=== PATIENT | male | born 1960 | race Caucasian/White ===

== ENCOUNTER 2016-07-05 10:44 | Emergency (ER) | payer OTHER ==
[2016-07-05 10:54] VITALS: BP 172/92; PULSE 95; RESP 20; TEMP 96.9
--- NOTE | 2016-07-05 11:21 | XR ---
EXAMINATION TYPE: XR shoulder complete LT DATE OF EXAM: 07/05/2016 11:16 AM COMPARISON: NONE HISTORY: 55-year-old male pain after fall TECHNIQUE: 3 views FINDINGS: Mild degenerative joint space narrowing at the AC joint. Subacromial space is preserved. No acute fra cture or dislocation seen. Visualized left hemithorax is clear. IMPRESSION: Mild AC joint osteoarthrosis. No acute osseous abnormality seen.
--- NOTE | 2016-07-05 11:28 | ED ---
Upper Extremity HPI - General Chief Complaint: Extremity Injury, Upper Stated Complaint: Fall Time Seen by Provider: 07/05/16 11:00 Source: patient, RN notes reviewed Mode of arrival: ambulatory Limitations: no limitations - History of Present Illness Initial Comments: Patient is a 55-year-old male presents to the emergency room for evaluation of left shoulder pain. Patient states he slipped and fell on ice last night. Patient states he landed on his left shoulder. Patient denies feeling any pops or cracks during the incident. Patient states increased pain when he woke up this morning. Patient states pain is mostly on the anterior portion of the shoulder joint. Patient denies any previous injuries or surgeries to his left shoulder. Patient states it causes him 5/10 pain to move his shoulder. Patient denies head trauma, loss consciousness, neck pain, numbness or tingling in extremities. Patient denies any other injuries during incident. - Related Data Home Medications Medication Instructions Recorded Confirmed Amitriptyline HCl [Elavil] 1 tab PO DAILY 07/05/16 07/05/16 Hydrochlorothiazide [Hydrodiuril] 1 tab PO DAILY 07/05/16 07/05/16 Insulin NPL/Insulin Lispro 0 unit SQ DIRECTED 07/05/16 07/05/16 [humaLOG Mix 75-25 Kwikpen] Venlafaxine HCl [Effexor] 1 tab PO DAILY 07/05/16 07/05/16 metFORMIN HCL [Glucophage] 1 tab PO BID 07/05/16 07/05/16 Allergies Allergy/AdvReac Type Severity Reaction Status Date / Time No Known Allergies Allergy Verified 07/05/16 11:36 Review of Systems ROS Statement: Those systems with pertinent positive or pertinent negative responses have been documented in the HPI. ROS Other: All systems not noted in ROS Statement are negative. Past Medical History Past Medical History: Diabetes Mellitus History of Any Multi-Drug Resistant Organisms: None Reported Past Surgical History: Appendectomy, Cholecystectomy Past Psychological History: Depression Smoking Status: Never smoker Past Alcohol Use History: None Reported Past Drug Use History: None Reported General Exam - General Exam Comments Initial Comments: Sitting in exam room in no acute distress. Limitations: no limitations General appearance: alert, in no apparent distress Head exam: Present: atraumatic, normocephalic, normal inspection Eye exam: Present: normal appearance ENT exam: Present: normal exam Neck exam: Present: normal inspection Respiratory exam: Present: normal lung sounds bilaterally. Absent: respiratory distress Cardiovascular Exam: Present: regular rate, normal rhythm, normal heart sounds Left Shoulder Exam: Present: normal inspection, full ROM (Patient can extend and abduct about 90), tenderness (anterior shoulder joint). Absent: swelling, ecchymosis, deformity, crepitus, tenderness over AC joint Upper Arm exam: Present: normal inspection, full ROM. Absent: tenderness Neuro motor exam: Present: wrist extension intact Vascular: Present: normal capillary refill (Capillary refill less than 2 seconds ), radial pulse (2+), ulnar pulse (2+) Back exam: Present: normal inspection Neurological exam: Present: alert, oriented X3, CN II-XII intact, normal gait Psychiatric exam: Present: normal affect, normal mood Skin exam: Present: warm, dry, intact, normal color. Absent: rash Course Vital Signs 07/05/16 10:51 Temperature 96.9 F L Pulse Rate 95 Respiratory 20 Rate Blood Pressure 172/92 O2 Sat by Pulse 97 Oximetry Medical Decision Making - Medical Decision Making Patient is a 55-year-old male presents to the emergency room for evaluation of fall injury to left shoulder. Left shoulder x-ray shows no acute abnormalities. Advised patient to follow-up with cycle specialist if symptoms are not improving. Patient states he understands everything that was discussed with him. Return parameters discussed. - Radiology Data Radiology results: report reviewed, image reviewed Disposition Clinical Impression: Fall, Shoulder injury Disposition: HOME SELF-CARE Condition: Good Instructions: Shoulder Sprain (ED), Rotator Cuff Injury (ED) Additional Instructions: Ice on and off for 10-15 minutes for the next 24-48 hours. Take Tylenol or Motrin as needed for pain. Please follow-up with cycle specialist if symptoms do not improve in 7-10 days. If new symptoms develop or symptoms worsen , please return to the ER. Referrals: Yomaira Sparks MD [Primary Care Provider] - 1-2 days Anoop Stevens DO [Doctor of Osteopathic Medicine] - 1-2 days Time of Disposition: 11:29
== END 2016-07-05 11:44 | disposition home or self-care (01) ==
LOC: EC 10:44
DX: S49.92XA Unspecified injury of left shoulder and upper arm, initial encounter (principal); W00.0XXA Fall on same level due to ice and snow, initial encounter; E11.9 Type 2 diabetes mellitus without complications; F32.9 Major depressive disorder, single episode, unspecified; Z79.4 Long term (current) use of insulin; Z79.84 Long term (current) use of oral hypoglycemic drugs; Z79.899 Other long term (current) drug therapy
CPT/HCPCS: 99283

== ENCOUNTER 2017-08-26 07:38 | Day surgery (SDC) | payer BC, OTHER ==
[2017-08-24 11:29] VITALS: BMI 36.5
[~2017-08-26 07:38] MED LIST: LACTATED RINGERS 1,000 ML IV SCH; LIDOCAINE 1% 20 ML VIAL (10MG/ML) FOR IV START INTRADERMA PRN
[2017-08-26] MEDS ORDERED: LACTATED RINGERS 1,000 ML IV ONE (07:52)
[2017-08-26 08:07] LABS: Glucose,Whole Blood 120 mg/dL (75-99)
[2017-08-26 08:19] VITALS: TEMP 98
[2017-08-26] MEDS ORDERED: LIDOCAINE 1% 20 ML VIAL (10MG/ML) FOR IV START INTRADERMA ONE (08:20)
[2017-08-26] MEDS ORDERED: PROPOFOL 10 MG/ML 20 ML VIAL IV ONE (08:24)
[2017-08-26] MEDS ORDERED: LIDOCAINE 1% INJ 10MG/ML (20 ML MDV) ONE (08:24)
--- NOTE | 2017-08-26 09:19 | P.PCN ---
Date of Procedure: 08/26/17 Procedure(s) Performed: Procedure: Total colonoscopy. Preoperative diagnosis: Screening for neoplasia. Postoperative diagnosis: Exam within normal limits. Preparation: HalfLytely prep. Sedation: Was provided by anesthesia. Brief clinical history: The patient is a 56-year-old male who is scheduled for this evaluation for screening for neoplasia. He had a prior exam around 10 years ago. No history of polyps or family history of colon cancer he is aware of. At this time, he has no abdominal complaints, bleeding or anemia. Procedure: With the patient on his left lateral decubitus position and after informed consent and adequate sedation, the perianal area was inspected and it did not show any fissures or fistulas. There were no masses felt on digital rectal examination. The Olympus CFQ 160L video colonoscope was then inserted in the rectum in the usual fashion and advanced to the cecum. The mucosa appeared healthy. No polyps or tumors were seen or any obvious diverticular disease or other pathology. The patient tolerated the procedure well. Plan: The patient was reassured. He will follow up with you as planned and I recommended repeat exam in 10 years.
[2017-08-26 09:29] LABS: Glucose,Whole Blood 115 mg/dL (75-99)
[2017-08-26 09:56] VITALS: BP 157/94; PULSE 68; RESP 18
== END 2017-08-26 10:08 | disposition home or self-care (01) ==
LOC: ORWHC2ENDO 07:38
DX: Z12.11 Encounter for screening for malignant neoplasm of colon (principal); E11.9 Type 2 diabetes mellitus without complications; K21.9 Gastro-esophageal reflux disease without esophagitis; E78.5 Hyperlipidemia, unspecified; I10 Essential (primary) hypertension; G47.33 Obstructive sleep apnea (adult) (pediatric); Z79.82 Long term (current) use of aspirin; Z79.4 Long term (current) use of insulin; Z86.14 Personal history of Methicillin resistant Staphylococcus aureus infection; Z79.899 Other long term (current) drug therapy; Z90.49 Acquired absence of other specified parts of digestive tract
CPT/HCPCS: 45378; J2001; J2704

== ENCOUNTER 2019-11-24 08:46 | Observation (INO) | payer OTHER ==
[2019-11-24] MEDS ORDERED: ONDANSETRON 4 MG/2 ML VIAL IVP STA (09:18)
[2019-11-24] MEDS ORDERED: SODIUM CHLORIDE 0.9% 1,000 ML IV STA (09:18)
[2019-11-24] MEDS ORDERED: HYDROmorphone 0.5 MG/0.5 ML SYRINGE IVP STA ×2 (09:18→11:21)
--- NOTE | 2019-11-24 09:22 | ED ---
General Adult HPI - General Chief complaint: Abdominal Pain Stated complaint: abd Pain Time Seen by Provider: 11/24/19 08:57 Source: patient, RN notes reviewed Mode of arrival: ambulatory Limitations: no limitations - History of Present Illness Initial comments: 59-year-old male with a past medical history of diabetes mellitus, hyperlipidemia, hypertension, GERD, presents to the emergency determine for a chief complaint of abdominal pain. Patient states that he was at work today about an hour ago when he started feeling pain in the right side of his abdomen. States the pain is severe. States is making him nauseous. Denies any radiating pain. Patient is concerned this could be from a hernia that he was told he had several years ago. Patient states bowel movements have been normal.Patient has no other complaints at this time including shortness of breath, chest pain, nausea or vomiting, headache, or visual changes. - Related Data Home Medications Medication Instructions Recorded Confirmed Amitriptyline HCl [Elavil] 25 mg PO HS 07/05/16 08/26/17 Hydrochlorothiazide [Hydrodiuril] 25 mg PO DAILY 07/05/16 08/26/17 Venlafaxine HCl [Effexor] 75 tab PO BID 07/05/16 08/26/17 metFORMIN HCL [Glucophage] 1,000 mg PO BID 07/05/16 08/26/17 Insulin NPH Hum/Reg Insulin Hm 35 unit SQ AC-SUPPER 09/18/16 08/26/17 [Novolin 70-30 100 Unit/ml Vial] Insulin NPH Hum/Reg Insulin Hm 43 unit SQ AC-BRKFST 09/18/16 08/24/17 [Novolin 70-30 100 Unit/ml Vial] Lisinopril-Hctz 10-12.5 mg 1 tab PO QAM 09/18/16 08/26/17 [Zestoretic 10-12.5] Omeprazole [PriLOSEC] 20 mg PO QAM 09/18/16 08/26/17 Pravastatin Sodium [Pravachol] 10 mg PO HS 09/18/16 08/26/17 Alpha Lipoic Acid 100 mg PO BID 08/24/17 08/26/17 Aspirin [Adult Low Dose Aspirin EC] 81 mg PO DAILY 08/24/17 08/26/17 Atenolol 50 mg PO DAILY 08/24/17 08/26/17 Allergies Allergy/AdvReac Type Severity Reaction Status Date / Time No Known Allergies Allergy Verified 11/24/19 08:54 Review of Systems ROS Statement: Those systems with pertinent positive or pertinent negative responses have been documented in the HPI. ROS Other: All systems not noted in ROS Statement are negative. Past Medical History Past Medical History: Diabetes Mellitus, GERD/Reflux, Hyperlipidemia, Hypertension, Pneumonia, Sleep Apnea/CPAP/BIPAP Additional Past Medical History / Comment(s): recent bronchitis,uses cpap History of Any Multi-Drug Resistant Organisms: None Reported Past Surgical History: Appendectomy, Cholecystectomy, Hernia Repair, Orthopedic Surgery Additional Past Surgical History / Comment(s): surgery rt elbow, Past Anesthesia/Blood Transfusion Reactions: No Reported Reaction Additional Past Anesthesia/Blood Transfusion Reaction / Comment(s): . Past Psychological History: Anxiety, Depression Smoking Status: Never smoker - Past Family History Mother Family Medical History: No Reported History Father Family Medical History: CVA/TIA General Exam Limitations: no limitations General appearance: alert, in no apparent distress Head exam: Present: atraumatic, normocephalic, normal inspection Eye exam: Present: normal appearance, PERRL, EOMI. Absent: scleral icterus, conjunctival injection, periorbital swelling ENT exam: Present: normal exam, mucous membranes moist Neck exam: Present: normal inspection, full ROM. Absent: tenderness, m eningismus, lymphadenopathy Respiratory exam: Present: normal lung sounds bilaterally. Absent: respiratory distress, wheezes, rales, rhonchi, stridor Cardiovascular Exam: Present: regular rate, normal rhythm, normal heart sounds. Absent: systolic murmur, diastolic murmur, rubs, gallop, clicks GI/Abdominal exam: Present: soft, tenderness (Mild tenderness noted in the right lower quadrant.), normal bowel sounds. Absent: distended, guarding, rebound, rigid, hernia (I do not see evidence of incarcerated hernia) Back exam: Absent: CVA tenderness (R), CVA tenderness (L) Neurological exam: Present: alert Course Vital Signs 11/24/19 11/24/19 08:52 12:20 Temperature 98.7 F 97.7 F Pulse Rate 89 78 Respiratory 18 18 Rate Blood Pressure 151/89 113/70 O2 Sat by Pulse 98 98 Oximetry Medical Decision Making - Medical Decision Making She presents with abdominal pain. Patient states pain is mostly in the right lower quadrant. Patient is concerned it may be related to history of a hernia. He has had for several years. He was told it was not operable at that time and would not cause problems. Is ago exam does reveal bulge over the umbilicus the patient states that is always there. CBC unremarkable. CMP does show evidence of hyponatremia. Patient has a history of this. Patient was told to take salt tablets by 1 doctor however his next doctor told him not to severe has not been doing so. He was already given a liter of normal saline on presentation. He will be gently rehydrated from now on. CT abdomen and pelvis with contrast shows a supra periumbilical hernia containing a loop of small bowel that appears entrapped with dilated bowel proximal to this and decompressed distally in bowel wall thickening of the entrapped bowel. Early forming bowel instruction secondary to this entrapped loop of bowel. I did give patient additional pain medication and was able to reduce this hernia. However patient continues to have significant abdominal pain. Patient and his are requesting to see Dr. Laurent as his surgeon. - Lab Data Result diagrams: 11/24/19 09:18 11/24/19 09:18 Lab Results 11/24/19 11/24/19 11/24/19 Range/Units 09:18 09:18 10:46 WBC 4.7 (3.8-10.6) k/uL RBC 5.20 (4.30-5.90) m/uL Hgb 14.7 (13.0-17.5) gm/dL Hct 45.1 (39.0-53.0) % MCV 86.6 (80.0-100.0) fL MCH 28.2 (25.0-35.0) pg MCHC 32.6 (31.0-37.0) g/dL RDW 14.6 (11.5-15.5) % Plt Count 209 (150-450) k/uL Neutrophils % 66 % Lymphocytes % 15 % Monocytes % 10 % Eosinophils % 5 % Basophils % 1 % Neutrophils # 3.1 (1.3-7.7) k/uL Lymphocytes # 0.7 L (1.0-4.8) k/uL Monocytes # 0.5 (0-1.0) k/uL Eosinophils # 0.2 (0-0.7) k/uL Basophils # 0.0 (0-0.2) k/uL Sodium 126 L (137-145) mmol/L Potassium 4.1 (3.5-5.1) mmol/L Chloride 95 L (98-107) mmol/L Carbon Dioxide 21 L (22-30) mmol/L Anion Gap 10 mmol/L BUN 10 (9-20) mg/dL Creatinine 0.52 L (0.66-1.25) mg/dL Est GFR (CKD-EPI)AfAm >90 (>60 ml/min/1.73 sqM) Est GFR (CKD-EPI)NonAf >90 (>60 ml/min/1.73 sqM) Glucose 165 H (74-99) mg/dL Calcium 9.1 (8.4-10.2) mg/dL Total Bilirubin 0.8 (0.2-1.3) mg/dL AST 35 (17-59) U/L ALT 19 (4-49) U/L Alkaline Phosphatase 77 (38-126) U/L Total Protein 6.9 (6.3-8.2) g/dL Albumin 4.2 (3.5-5.0) g/dL Amylase 42 (30-110) U/L Lipase 99 (23-300) U/L Urine Color Light Yellow Urine Appearance Clear (Clear) Urine pH 6.5 (5.0-8.0) Ur Specific [place]iba 1.022 (1.001-1.035) Urine Protein Negative (Negative) Urine Glucose (UA) Negative (Negative) Urine Ketones Negative (Negative) Urine Blood Negative (Negative) Urine Nitrite Negative (Negative) Urine Bilirubin Negative (Negative) Urine Urobilinogen <2.0 (<2.0) mg/dL Ur Leukocyte Esterase Negative (Negative) Disposition Clinical Impression: Supraumbilical hernia, Intractable abdominal pain, Hyponatremia Disposition: ADMITTED IP TO THIS HOSP Condition: Good Is patient prescribed a controlled substance at d/c from ED?: No Referrals: Yomaira Sparks MD [Primary Care Provider] - 1-2 days Time of Disposition: 12:36
[2019-11-24 09:43] LABS: Basophils % (A) 1 %; Eosinophils # (A) 0.2 k/uL (0-0.7); Eosinophils % (A) 5 %; HCT 45.1 % (39.0-53.0); HGB 14.7 gm/dL (13.0-17.5); Lymphocytes # (A) 0.7 k/uL (1.0-4.8); Lymphocytes % (A) 15 %; MCH 28.2 pg (25.0-35.0); MCHC 32.6 g/dL (31.0-37.0); MCV 86.6 fL (80.0-100.0); Mean Platelet Volume 7.1; Monocytes # (A) 0.5 k/uL (0-1.0); Monocytes % (A) 10 %; Neutrophils # (A) 3.1 k/uL (1.3-7.7); Neutrophils % (A) 66 %; Platelet Count 209 k/uL (150-450); RDW 14.6 % (11.5-15.5); WBC 4.7 k/uL (3.8-10.6)
[2019-11-24 09:57] LABS: ALT 19 U/L (4-49); AST 35 U/L (17-59); African American GFR (CKD) >90 (>60 ml/min/1.73 sqM); Albumin 4.2 g/dL (3.5-5.0); Alkaline Phosphatase 77 U/L (38-126); Amylase 42 U/L (30-110); Anion Gap 10 mmol/L; Blood Urea Nitrogen 10 mg/dL (9-20); Calcium 9.1 mg/dL (8.4-10.2); Carbon Dioxide 21 mmol/L (22-30); Chloride 95 mmol/L (98-107); Glucose 165 mg/dL (74-99); Non-African American GFR(CKD) >90 (>60 ml/min/1.73 sqM); Potassium 4.1 mmol/L (3.5-5.1); Sodium 126 mmol/L (137-145); Total Bilirubin 0.8 mg/dL (0.2-1.3); Total Protein 6.9 g/dL (6.3-8.2)
--- NOTE | 2019-11-24 11:02 | CT ---
EXAMINATION TYPE: CT abdomen pelvis w con DATE OF EXAM: 11/24/2019 COMPARISON: None HISTORY: RLQ pain CT DLP: 1582.7 mGycm Automated exposure control for dose reduction was used. TECHNIQUE: Helical acquisition of images was performed from the lung bases through the pelvis. CONTRAST: Performed without Oral Contrast and with IV Contrast, patient injected with 100 mL of Isovue 300. FINDINGS: LUNG BASES: Bibasilar subsegmental dependent atelectasis. 4 mm right lower lobe pulmonary nodule and calcified left basilar granuloma. LIVER/GB: Unremarkable morphology of liver. Gallbladder surgically absent. PANCREAS: No significant abnormality is seen. SPLEEN: No significant abnormality is seen. ADRENALS: No significant abnormality is seen. KIDNEYS: 1.9 cm left renal cyst is noted. Kidneys enhance and excrete symmetrically otherwise without hydronephrosis. Bilateral extrarenal pelvises. FREE AIR: No free air is visualized. ADENOPATHY: No greater than 1 cm short axis lymph node in the abdomen or pelvis. REPRODUCTIVE ORGANS: Prostate gland is enlarged and with numerous areas of hyperattenuation. Prostate gland measures 6.4 cm. OSSEOUS STRUCTURES: Moderate degenerative change of the spine. BOWEL: Solitary surgical clip seen at the gastroesophageal junction. There are scattered colonic div erticula without pericolonic fat stranding. OTHER: Supra umbilical hernia contains a loop of small bowel demonstrating thickened bowel hope. The re is dilatation proximal to this the bowel is fluid-filled measuring 3.6 cm and decompression distal to this of the small bowel. Other prominent fluid-filled loops of small bowel are seen proximally wi th decompressed distal bowel loops. Inguinal rings are patulous bilaterally and fat filled. IMPRESSION: 1. Supraumbilical hernia containing a loop of small bowel that appears entrapped with bowel dilated p roximal to this and decompressed distally and bowel wall thickening of the entrapped bowel loop. Tawanda y forming bowel obstruction secondary to this entrapped loop of bowel. Correlate for reducibility cli nically. 2. Noncalcified 4 mm right lower lobe pulmonary nodule. Nonemergent follow up CT chest is recommended for full evaluation of the chest. 3. Heterogenous enlarged prostate gland contains numerous areas of hyperattenuation. Correlate with P SA.
[2019-11-24 11:28] LABS: Appearance,Urine Clear (Clear); Bilirubin,Urine Negative (Negative); Blood,Urine Negative (Negative); Color,Urine Light Yellow; Glucose,Urine (UA) Negative (Negative); Ketones,Urine Negative (Negative); Leukocyte Esterase,Urine Negative (Negative); Nitrite,Urine Negative (Negative); PH, Urine 6.5 (5.0-8.0); Protein,Urine Negative (Negative); Specific Gravity,Urine 1.022 (1.001-1.035); Urobilinogen,Urine <2.0 mg/dL (<2.0)
[2019-11-24] MEDS ORDERED: NALOXONE 0.4 MG/ML 1 ML VIAL IV PRN (12:27)
[2019-11-24] MEDS ORDERED: HYDROmorphone 0.5 MG/0.5 ML SYRINGE IVP PRN (12:27)
[2019-11-24] MEDS ORDERED: ONDANSETRON 4 MG/2 ML VIAL IVP PRN (12:27)
[2019-11-24] MEDS ORDERED: ACETAMINOPHEN TAB 325 MG TAB PO PRN (12:27)
[2019-11-24] MEDS: SODIUM CHLORIDE 0.9% 1,000 ML IV SCH ×2 (13:22→23:40)
[2019-11-24 16:35] LABS: Glucose,Whole Blood 68 mg/dL (75-99)
[2019-11-24] MEDS ORDERED: DEXTROSE 50% SYRINGE 50 ML IVP ONE (16:38)
[2019-11-24 16:53] LABS: Glucose,Whole Blood 88 mg/dL (75-99)
[2019-11-24] MEDS: INSULIN ASPART (NovoLOG) 100 UNIT/ML VIAL SQ SCH ×2 (17:51→21:25)
[2019-11-24 17:53] LABS: Glucose,Whole Blood 88 mg/dL (75-99)
--- NOTE | 2019-11-24 18:10 | P.GSHP ---
History of Present Illness H&P Date: 11/24/19 Chief Complaint: Incarcerated umbilical hernia 59-year-old male with history of umbilical hernia. This afternoon the patient developed sudden pain at the hernia site. Says it was quite hard. Pain radiated to the right side of his abdomen. He was nauseated. No vomiting. CAT scan was obtained after arrival showing an incarcerated hernia containing bowel loops. Subsequent obstruction from that was noted. Patient's hernia was able to be reduced by the ER staff. He is now pain free. Patient is diabetic. History of previous cholecystectomy and appendectomy. - Review of Systems Comment: The patient denies any acute changes in vision or hearing, no dysphagia or odynophagia, no chest pain or shortness of breath, no dysuria or hematuria, no headache, no runny nose, no rectal bleeding or melena, no unexplained weight loss Past Medical History Past Medical History: Diabetes Mellitus, GERD/Reflux, Hyperlipidemia, Hypertension, Pneumonia, Sleep Apnea/CPAP/BIPAP Additional Past Medical History / Comment(s): recent bronchitis,uses cpap History of Any Multi-Drug Resistant Organisms: None Reported Past Surgical History: Appendectomy, Cholecystectomy, Hernia Repair, Orthopedic Surgery Additional Past Surgical History / Comment(s): surgery rt elbow, Past Anesthesia/Blood Transfusion Reactions: No Reported Reaction Additional Past Anesthesia/Blood Transfusion Reaction / Comment(s): . Past Psychological History: Anxiety, Depression Smoking Status: Never smoker Past Alcohol Use History: None Reported Past Drug Use History: None Reported - Past Family History Mother Family Medical History: Dementia Father Family Medical History: CVA/TIA Additional Family Medical History / Comment(s): Medications and Allergies Home Medications Medication Instructions Recorded Confirmed Type Amitriptyline HCl [Elavil] 25 mg PO HS 07/05/16 11/24/19 History Venlafaxine HCl [Effexor] 75 tab PO BID 07/05/16 11/24/19 History metFORMIN HCL [Glucophage] 1,000 mg PO BID 07/05/16 11/24/19 History Insulin NPH Hum/Reg Insulin Hm 10 unit SQ AC-SUPPER 09/18/16 11/24/19 History [Novolin 70-30 100 Unit/ml Vial] Insulin NPH Hum/Reg Insulin Hm 20 unit SQ AC-BRKFST 09/18/16 11/24/19 History [Novolin 70-30 100 Unit/ml Vial] Aspirin [Adult Low Dose Aspirin EC] 81 mg PO DAILY 08/24/17 11/24/19 History Atenolol 50 mg PO DAILY 08/24/17 11/24/19 History Dulaglutide [Trulicity] 1.5 mg SQ TH 11/24/19 11/24/19 History Lisinopril [Zestril] 5 mg PO DAILY 11/24/19 11/24/19 History Pioglitazone [Actos] 15 mg PO DAILY 11/24/19 11/24/19 History Pravastatin Sodium [Pravachol] 40 mg PO HS 11/24/19 11/24/19 History Allergies Allergy/AdvReac Type Severity Reaction Status Date / Time No Known Allergies Allergy Verified 11/24/19 13:12 Surgical - Exam Vital Signs Temp Pulse Resp BP Pulse Ox 98.7 F 89 18 151/89 98 11/24/19 08:52 11/24/19 08:52 11/24/19 08:52 11/24/19 08:52 11/24/19 08:52 Physical exam: General: Well-developed, well-nourished HEENT: Normocephalic, sclerae nonicteric Abdomen: Nontender, nondistended, reducible umbilical hernia Extremities: No edema Neuro: Alert and oriented Results - Labs 11/24/19 09:18 11/24/19 09:18 Abnormal Lab Results - Last 24 Hours (Table) 11/24/19 11/24/19 11/24/19 Range/Units 09:18 09:18 16:33 Lymphocytes # 0.7 L (1.0-4.8) k/uL Sodium 126 L (137-145) mmol/L Chloride 95 L (98-107) mmol/L Carbon Dioxide 21 L (22-30) mmol/L Creatinine 0.52 L (0.66-1.25) mg/dL Glucose 165 H (74-99) mg/dL POC Glucose (mg/dL) 68 L (75-99) mg/dL Diabetes panel 11/24/19 Range/Units 09:18 Sodium 126 L (137-145) mmol/L Potassium 4.1 (3.5-5.1) mmol/L Chloride 95 L (98-107) mmol/L Carbon Dioxide 21 L (22-30) mmol/L BUN 10 (9-20) mg/dL Creatinine 0.52 L (0.66-1.25) mg/dL Glucose 165 H (74-99) mg/dL Calcium 9.1 (8.4-10.2) mg/dL AST 35 (17-59) U/L ALT 19 (4-49) U/L Alkaline Phosphatase 77 (38-126) U/L Total Protein 6.9 (6.3-8.2) g/dL Albumin 4.2 (3.5-5.0) g/dL Calcium panel 11/24/19 Range/Units 09:18 Calcium 9.1 (8.4-10.2) mg/dL Albumin 4.2 (3.5-5.0) g/dL Pituitary panel 11/24/19 Range/Units 09:18 Sodium 126 L (137-145) mmol/L Potassium 4.1 (3.5-5.1) mmol/L Chloride 95 L (98-107) mmol/L Carbon Dioxide 21 L (22-30) mmol/L BUN 10 (9-20) mg/dL Creatinine 0.52 L (0.66-1.25) mg/dL Glucose 165 H (74-99) mg/dL Calcium 9.1 (8.4-10.2) mg/dL Adrenal panel 11/24/19 Range/Units 09:18 Sodium 126 L (137-145) mmol/L Potassium 4.1 (3.5-5.1) mmol/L Chloride 95 L (98-107) mmol/L Carbon Dioxide 21 L (22-30) mmol/L BUN 10 (9-20) mg/dL Creatinine 0.52 L (0.66-1.25) mg/dL Glucose 165 H (74-99) mg/dL Calcium 9.1 (8.4-10.2) mg/dL Total Bilirubin 0.8 (0.2-1.3) mg/dL AST 35 (17-59) U/L ALT 19 (4-49) U/L Alkaline Phosphatase 77 (38-126) U/L Total Protein 6.9 (6.3-8.2) g/dL Albumin 4.2 (3.5-5.0) g/dL Assessment and Plan (1) Incarcerated umbilical hernia Narrative/Plan: 59-year-old male with incarcerated umbilical hernia. Hernia has been reduced by the ER staff. Doing well at this time. Will resume diet. Possible discharge later today or tomorrow morning. Elective outpatient repair will be arranged. Current Visit: Yes Status: Acute Code(s): K42.0 - UMBILICAL HERNIA WITH OBSTRUCTION, WITHOUT GANGRENE SNOMED Code(s): 479845495
[2019-11-24] MEDS ORDERED: PRAVASTATIN SODIUM 40 MG TAB PO SCH (21:00)
[2019-11-24 21:24] LABS: Glucose,Whole Blood 122 mg/dL (75-99)
[2019-11-25 06:11] LABS: Glucose,Whole Blood 94 mg/dL (75-99)
[2019-11-25] MEDS: INSULIN ASPART (NovoLOG) 100 UNIT/ML VIAL SQ SCH (07:21)
[2019-11-25 07:52] LABS: ALT 20 U/L (4-49); AST 65 U/L (17-59); African American GFR (CKD) >90 (>60 ml/min/1.73 sqM); Alkaline Phosphatase 74 U/L (38-126); Anion Gap 7 mmol/L; Blood Urea Nitrogen 7 mg/dL (9-20); Calcium 8.5 mg/dL (8.4-10.2); Carbon Dioxide 21 mmol/L (22-30); Chloride 99 mmol/L (98-107); Glucose 98 mg/dL (74-99); Non-African American GFR(CKD) >90 (>60 ml/min/1.73 sqM); Potassium 5.3 mmol/L (3.5-5.1); Sodium 127 mmol/L (137-145); Total Bilirubin 1.6 mg/dL (0.2-1.3)
[2019-11-25 08:00] LABS: Basophils % (A) 1 %; Eosinophils # (A) 0.3 k/uL (0-0.7); Eosinophils % (A) 6 %; HCT 46.2 % (39.0-53.0); HGB 15.4 gm/dL (13.0-17.5); Lymphocytes # (A) 0.8 k/uL (1.0-4.8); Lymphocytes % (A) 14 %; MCH 29.7 pg (25.0-35.0); MCHC 33.3 g/dL (31.0-37.0); MCV 89.1 fL (80.0-100.0); Mean Platelet Volume 7.4; Monocytes # (A) 0.4 k/uL (0-1.0); Monocytes % (A) 8 %; Neutrophils # (A) 3.7 k/uL (1.3-7.7); Neutrophils % (A) 69 %; Platelet Count 184 k/uL (150-450); RBC 5.18 m/uL (4.30-5.90); RDW 15.1 % (11.5-15.5); WBC 5.3 k/uL (3.8-10.6)
[2019-11-25] MEDS ORDERED: LISINOPRIL 5 MG TAB PO SCH (09:00)
[2019-11-25] MEDS ORDERED: PIOGLITAZONE 15 MG TAB PO SCH (09:00)
[2019-11-25] MEDS ORDERED: ATENOLOL 50 MG TAB PO SCH (09:00)
[2019-11-25 09:08] VITALS: BP 133/90; PULSE 85; RESP 16; TEMP 98.3
[2019-11-25] MEDS: SODIUM CHLORIDE 0.9% 1,000 ML IV SCH (09:23)
[2019-11-25 11:34] LABS: Glucose,Whole Blood 165 mg/dL (75-99)
--- NOTE | 2019-11-25 12:58 | P.DS ---
Providers Date of admission: 11/24/19 12:27 Attending physician: Bryant Joseph Primary care physician: Yomaira Sparks - Discharge Diagnosis(es) (1) Incarcerated umbilical hernia Patient minute yesterday for an incarcerated umbilical hernia. This was reduced in the ER. He was observed overnight. He is pain-free today. He would like to go home. Plan is for discharge at this time. Outpatient repair will be scheduled. Status: Acute Patient Condition at Discharge: Good Plan - Discharge Summary Discharge Rx Participant: No New Discharge Prescriptions: No Action metFORMIN HCL [Glucophage] 1,000 mg PO BID Venlafaxine HCl [Effexor] 75 tab PO BID Amitriptyline HCl [Elavil] 25 mg PO HS Insulin NPH Hum/Reg Insulin Hm [Novolin 70-30 100 Unit/ml Vial] 20 unit SQ AC-BRKFST Insulin NPH Hum/Reg Insulin Hm [Novolin 70-30 100 Unit/ml Vial] 10 unit SQ AC-SUPPER Atenolol 50 mg PO DAILY Aspirin [Adult Low Dose Aspirin EC] 81 mg PO DAILY Dulaglutide [Trulicity] 1.5 mg SQ TH Pravastatin Sodium [Pravachol] 40 mg PO HS Pioglitazone [Actos] 15 mg PO DAILY Lisinopril [Zestril] 5 mg PO DAILY Discharge Medication List Amitriptyline HCl [Elavil] 25 mg PO HS 07/05/16 [History] Venlafaxine HCl [Effexor] 75 tab PO BID 07/05/16 [History] metFORMIN HCL [Glucophage] 1,000 mg PO BID 07/05/16 [History] Insulin NPH Hum/Reg Insulin Hm [Novolin 70-30 100 Unit/ml Vial] 10 unit SQ AC- SUPPER 09/18/16 [History] Insulin NPH Hum/Reg Insulin Hm [Novolin 70-30 100 Unit/ml Vial] 20 unit SQ AC- BRKFST 09/18/16 [History] Aspirin [Adult Low Dose Aspirin EC] 81 mg PO DAILY 08/24/17 [History] Atenolol 50 mg PO DAILY 08/24/17 [History] Dulaglutide [Trulicity] 1.5 mg SQ TH 11/24/19 [History] Lisinopril [Zestril] 5 mg PO DAILY 11/24/19 [History] Pioglitazone [Actos] 15 mg PO DAILY 11/24/19 [History] Pravastatin Sodium [Pravachol] 40 mg PO HS 11/24/19 [History] Follow up Appointment(s)/Referral(s): Bryant Joseph MD [Medical Doctor] - 2 Weeks (patient is to call Dr. Joseph's office during office hours to schedule appointment in the next 1-2 weeks for follow up post hospitalization.) Yomaira Sparks MD [Primary Care Provider] - 1-2 days Patient Instructions/Handouts: Umbilical Hernia (DC) Activity/Diet/Wound Care/Special Instructions: NO HEAVY LIFTING. call Dr. Joseph's office during office hours to schedule follow up appointment. Discharge Disposition: HOME SELF-CARE
== END 2019-11-25 12:43 | disposition home or self-care (01) ==
LOC: EC 08:46 → 1SOBS 12:27
PROVIDERS: ADMIT Surgery; ATTEND Surgery
DX: K43.9 Ventral hernia without obstruction or gangrene (principal); E87.1 Hypo-osmolality and hyponatremia; E11.9 Type 2 diabetes mellitus without complications; E78.5 Hyperlipidemia, unspecified; I10 Essential (primary) hypertension; K21.9 Gastro-esophageal reflux disease without esophagitis; G47.30 Sleep apnea, unspecified; F41.9 Anxiety disorder, unspecified; F32.9 Major depressive disorder, single episode, unspecified; Z03.818 Encounter for observation for suspected exposure to other biological agents ruled out; Z79.899 Other long term (current) drug therapy; Z79.4 Long term (current) use of insulin; Z79.82 Long term (current) use of aspirin; Z87.01 Personal history of pneumonia (recurrent); Z99.89 Dependence on other enabling machines and devices; Z87.09 Personal history of other diseases of the respiratory system; Z90.49 Acquired absence of other specified parts of digestive tract; Z98.890 Other specified postprocedural states; Z82.3 Family history of stroke; Z81.8 Family history of other mental and behavioral disorders
CPT/HCPCS: 96376; 96361; 96374; 96375; 99285; 36415; 80053 ×2; 82150; 83605; 83690; 85025 ×2; 81003; 74177; G0378 ×2; U0003; J2405; J1170; Q9967

== ENCOUNTER → 2021-04-16 | Outpatient (CLI) | payer OTHER | END | disposition home or self-care (01) | LOC: LABPAT 15:09 | PROVIDERS: ATTEND Urology | DX: Z01.812 Encounter for preprocedural laboratory examination (principal); E11.9 Type 2 diabetes mellitus without complications; N40.1 Benign prostatic hyperplasia with lower urinary tract symptoms; R35.0 Frequency of micturition | CPT/HCPCS: 80048; 81001; 85025; 86850; 86900; 86901; 87086 ==

== ENCOUNTER 2021-04-24 09:35 | Day surgery (SDC) | payer OTHER ==
[2021-04-16 16:46] LABS: African American GFR (CKD) >90 (>60 ml/min/1.73 sqM); Anion Gap 9 mmol/L; Blood Urea Nitrogen 15 mg/dL (9-20); Carbon Dioxide 29 mmol/L (22-30); Chloride 90 mmol/L (98-107); Glucose 119 mg/dL (74-99); Non-African American GFR(CKD) >90 (>60 ml/min/1.73 sqM); Potassium 4.3 mmol/L (3.5-5.1); Sodium 128 mmol/L (137-145)
[2021-04-16 17:13] LABS: Basophils % (A) 0 %; Eosinophils # (A) 0.1 k/uL (0-0.7); Eosinophils % (A) 2 %; HCT 46.7 % (39.0-53.0); HGB 16.1 gm/dL (13.0-17.5); Lymphocytes # (A) 1.4 k/uL (1.0-4.8); Lymphocytes % (A) 18 %; MCH 30.8 pg (25.0-35.0); MCHC 34.6 g/dL (31.0-37.0); MCV 89.1 fL (80.0-100.0); Mean Platelet Volume 7.8; Monocytes # (A) 0.5 k/uL (0-1.0); Monocytes % (A) 7 %; Neutrophils # (A) 5.4 k/uL (1.3-7.7); Neutrophils % (A) 72 %; Platelet Count 223 k/uL (150-450); RBC 5.24 m/uL (4.30-5.90); RDW 13.8 % (11.5-15.5); WBC 7.5 k/uL (3.8-10.6)
[2021-04-16 18:14] LABS: Appearance,Urine Cloudy (Clear); Bacteria,Urine Rare /hpf; Bilirubin,Urine Negative (Negative); Blood,Urine Trace (Negative); Color,Urine Yellow; Glucose,Urine (UA) Negative (Negative); Ketones,Urine Negative (Negative); Leukocyte Esterase,Urine Large (Negative); Nitrite,Urine Negative (Negative); Protein,Urine Negative (Negative); RBC,Urine 19 /hpf (0-5); Specific Gravity,Urine 1.013 (1.001-1.035); Urobilinogen,Urine <2.0 mg/dL (<2.0); WBC,Urine >182 /hpf (0-5)
--- NOTE | 2021-04-17 13:22 | P.HPIHPCON ---
History of Present Illness H&P Date: 04/17/21 Chief Complaint: BPH This is a 60-year-old male with history of an 89 g prostate. He is symptomatic despite medical therapy. Discussed with him given his size of his prostate, the option of staged TURP, robotic simple, HoLEP. Discussed risk and benefit of each approach. He agreed to proceed with robotic simple prostatectomy. Discussed the risk which includes but not limited to bleeding, infection, urinary incontinence, retrograde ejaculation, erectile dysfunction, persistent urinary symptoms, injury to the bladder, injury to the ureter. Discussed also risk from anesthesia. He understood all the risk and agreed to proceed Consent for Procedure: I have explained the operation/procedure to the patient, including the risks, benefits, side effects, alternative therapies (including not receiving the proposed treatment or service), the likelihood of the patient achieving his/her goals, and potential recuperation problems for the procedure/sedation/analgesia, as well as any blood products, if indicated. I also explained to the patient the risks, benefits and side effects of the alternatives, as well as the risks related to not receiving the proposed procedure, care, treatment, or services. - Constitutional Constitutional: Denies chills, Denies fever - Cardiovascular Cardiovascular: Denies chest pain, Denies shortness of breath - Gastrointestinal Gastrointestinal: Denies abdominal pain, Denies diarrhea, Denies nausea, Denies vomiting Past Medical History Past Medical History: Diabetes Mellitus, GERD/Reflux, Hyperlipidemia, Hypertension, Pneumonia, Sleep Apnea/CPAP/BIPAP Additional Past Medical History / Comment(s): recent bronchitis,uses cpap History of Any Multi-Drug Resistant Organisms: None Reported Past Surgical History: Appendectomy, Cholecystectomy, Hernia Repair, Orthopedic Surgery Additional Past Surgical History / Comment(s): surgery rt elbow, Past Anesthesia/Blood Transfusion Reactions: No Reported Reaction Additional Past Anesthesia/Blood Transfusion Reaction / Comment(s): . Past Psychological History: Anxiety, Depression Past Alcohol Use History: None Reported Past Drug Use History: None Reported - Past Family History Mother Family Medical History: Dementia Father Family Medical History: CVA/TIA Additional Family Medical History / Comment(s): Medications and Allergies Home Medications Medication Instructions Recorded Confirmed Type Amitriptyline HCl [Elavil] 25 mg PO HS 07/05/16 11/24/19 History Venlafaxine HCl [Effexor] 75 tab PO BID 07/05/16 11/24/19 History metFORMIN HCL [Glucophage] 1,000 mg PO BID 07/05/16 11/24/19 History Insulin NPH Hum/Reg Insulin Hm 10 unit SQ AC-SUPPER 09/18/16 11/24/19 History [Novolin 70-30 100 Unit/ml Vial] Insulin NPH Hum/Reg Insulin Hm 20 unit SQ AC-BRKFST 09/18/16 11/24/19 History [Novolin 70-30 100 Unit/ml Vial] Aspirin [Adult Low Dose Aspirin EC] 81 mg PO DAILY 08/24/17 11/24/19 History atenoloL 50 mg PO DAILY 08/24/17 11/24/19 History Dulaglutide [Trulicity] 1.5 mg SQ TH 11/24/19 11/24/19 History Pioglitazone [Actos] 15 mg PO DAILY 11/24/19 11/24/19 History Pravastatin Sodium [Pravachol] 40 mg PO HS 11/24/19 11/24/19 History lisinopriL [Zestril] 5 mg PO DAILY 11/24/19 11/24/19 History Allergies Allergy/AdvReac Type Severity Reaction Status Date / Time No Known Allergies Allergy Verified 11/24/19 13:12 Surgical - Exam - General no distress, no pain - Eyes PERRL, normal ocular movement - ENT normal nares, normal mucosa - Respiratory normal expansion, normal respiratory effort - Abdomen Abdomen: soft, non tender - Psychiatric oriented to time, oriented to person Results - Labs 04/16/21 15:41 04/16/21 15:41 Abnormal Lab Results - Last 24 Hours (Table) 04/16/21 04/16/21 Range/Units 15:41 15:41 Sodium 128 L (137-145) mmol/L Chloride 90 L (98-107) mmol/L Glucose 119 H (74-99) mg/dL Urine Blood Trace H (Negative) Ur Leukocyte Esterase Large H (Negative) Urine RBC 19 H (0-5) /hpf Urine WBC >182 H (0-5) /hpf Urine WBC Clumps Moderate H (None) /hpf Urine Bacteria Rare H (None) /hpf Microbiology - Last 24 Hours (Table) 04/16/21 15:41 Urine Culture - Preliminary Urine,Voided Diabetes panel 04/16/21 Range/Units 15:41 Sodium 128 L (137-145) mmol/L Potassium 4.3 (3.5-5.1) mmol/L Chloride 90 L (98-107) mmol/L Carbon Dioxide 29 (22-30) mmol/L BUN 15 (9-20) mg/dL Creatinine 0.80 (0.66-1.25) mg/dL Glucose 119 H (74-99) mg/dL Calcium 10.0 (8.4-10.2) mg/dL Calcium panel 04/16/21 Range/Units 15:41 Calcium 10.0 (8.4-10.2) mg/dL Pituitary panel 04/16/21 Range/Units 15:41 Sodium 128 L (137-145) mmol/L Potassium 4.3 (3.5-5.1) mmol/L Chloride 90 L (98-107) mmol/L Carbon Dioxide 29 (22-30) mmol/L BUN 15 (9-20) mg/dL Creatinine 0.80 (0.66-1.25) mg/dL Glucose 119 H (74-99) mg/dL Calcium 10.0 (8.4-10.2) mg/dL Adrenal panel 04/16/21 Range/Units 15:41 Sodium 128 L (137-145) mmol/L Potassium 4.3 (3.5-5.1) mmol/L Chloride 90 L (98-107) mmol/L Carbon Dioxide 29 (22-30) mmol/L BUN 15 (9-20) mg/dL Creatinine 0.80 (0.66-1.25) mg/dL Glucose 119 H (74-99) mg/dL Calcium 10.0 (8.4-10.2) mg/dL Assessment and Plan Assessment: 60 yo male with history of BPH -Or for robotic simple
[2021-04-21 15:49] VITALS: BMI 36.5
[~2021-04-24 09:35] MED LIST changes: +DEXAMETHASONE SOD PHOSPHATE 4 MG/ML 1 ML VIAL IV ONE; +HEPARIN SODIUM,PORCINE/PF 5,000 UNIT/0.5 ML SYRINGE SQ PRN; -LACTATED RINGERS 1,000 ML IV SCH; -LIDOCAINE 1% 20 ML VIAL (10MG/ML) FOR IV START INTRADERMA PRN; +MIDAZOLAM 2 MG/2 ML VIAL IV PRN; +ONDANSETRON 4 MG/2 ML VIAL IVP ONE; +SCOPOLAMINE 1.5MG/72HR PATCH TRANSDERM ONE
[2021-04-24 10:21] LABS: Glucose,Whole Blood 140 mg/dL (75-99)
[2021-04-24] MEDS ORDERED: LIDOCAINE 1% (10MG/ML) FOR IV START INTRADERMA ONE (10:21)
[2021-04-24] MEDS: LACTATED RINGERS 1,000 ML IV SCH (10:29)
--- NOTE | 2021-04-24 10:38 | P.ANPRN ---
Procedure Note - Anesthesia - Nerve Block Performed Bilateral Erector Spinae Single Time Out Performed: Yes (1026) Date of Procedure: 04/24/21 Location of Patient: PreOp Indication: Acute Post-Operative Pain, Requested by Surgeon Sedation Type: Sedate with meaningful contact maintained Preparation: Sterile Prep, Sterile Dressing Position: Prone Catheter: None Needle Types: Pajunk Needle Gauge: 21 Ultrasound used to visualize needle placement: Yes Ultrasound used to observe medication spread: Yes Injectate: 0.5% Ropivacaine (see comment for volume) (30 ml of 0.5% Ropivacaine mixed with 20 ml of 09% Nacl and 10 mg of dexamethasone - 25 ml of mixture injected on each side.) Blood Aspirated: No Pain Paresthesia on Injection Noted: No Resistance on Injection: Normal Image Stored and Saved: Yes
[2021-04-24] MEDS ORDERED: GLYCOPYRROLATE 0.2 MG/ML 2 ML VIAL ONE (12:09)
[2021-04-24] MEDS ORDERED: MIDAZOLAM 2 MG/2 ML VIAL ONE (12:09)
[2021-04-24] MEDS ORDERED: LIDOCAINE 1% INJ 10MG/ML (20 ML MDV) ONE (12:09)
[2021-04-24] MEDS ORDERED: DEXAMETHASONE SOD PHOSPHATE 10 MG/ML 1 ML VIAL ONE (12:09)
[2021-04-24] MEDS ORDERED: SUCCINYLCHOLINE CHLORIDE 100 MG/5 ML SYR IV ONE (12:09)
[2021-04-24] MEDS ORDERED: SODIUM CHLORIDE 0.9% (PF) 10 ML VIAL ONE (12:09)
[2021-04-24] MEDS ORDERED: PHENYLEPHRINE-0.9% NACL SYG 1,000 MCG/10 ML SYRINGE ONE (12:09)
[2021-04-24] MEDS ORDERED: NEOSTIGMINE 1 MG/ML 10 ML VIAL ONE (12:09)
[2021-04-24] MEDS ORDERED: fentaNYL (PF) 50 MCG/ML 2 ML AMP ONE (12:09)
[2021-04-24] MEDS ORDERED: HYDROmorphone (PF) 1 MG/ML ONE (12:09)
[2021-04-24] MEDS ORDERED: ROCURONIUM 10 MG/ML (5 ML VIAL) IV ONE (12:09)
[2021-04-24] MEDS ORDERED: ROPIVACAINE 5 MG/ML 30 ML VIAL ONE (12:09)
[2021-04-24] MEDS ORDERED: PROPOFOL 10 MG/ML 20 ML VIAL IV ONE (12:09)
[2021-04-24] MEDS ORDERED: BUPIVACAINE (PF) 0.5% 30 ML VIAL SQ ONE ×2 (12:14→15:51)
[2021-04-24] MEDS ORDERED: LACTATED RINGERS 1,000 ML IV ONE ×3 (14:28→15:38)
--- NOTE | 2021-04-24 15:42 | P.OP ---
Date of Procedure: 04/24/21 Preoperative Diagnosis: BPH Postoperative Diagnosis: Same Procedure(s) Performed: Robotic-assisted laparoscopic simple prostatectomy, lysis of adhesions Implants: none Anesthesia: JAZMYN Surgeon: Gianluca Cornejo Die Try Out Worker Stamping #1: Tonny Aguila Estimated Blood Loss (ml): 100 Pathology: other (Prostate adenoma) Condition: stable Disposition: PACU Indications for Procedure: This is a 60-year-old male with history of an 89 g prostate. He is symptomatic despite medical therapy. Discussed with him given his size of his prostate, the option of staged TURP, robotic simple, HoLEP. Discussed risk and benefit of each approach. He agreed to proceed with robotic simple prostatectomy. Discussed the risk which includes but not limited to bleeding, infection, urinary incontinence, retrograde ejaculation, erectile dysfunction, persistent urinary symptoms, injury to the bladder, injury to the ureter. Discussed also risk from anesthesia. He understood all the risk and agreed to proceed Description of Procedure: After preoperative antibiotics were started, the patient was taken to the operating room. Anesthesia was induced and the patient was placed in a supine position with adequate padding of the pressure points, shoulders, back, legs and arms. He was then prepped and draped in the standard fashion. A critical pause was performed using two patient identifiers. A 16F dejesus catheter was placed to gravity drainage. A pneumoperitoneum was obtained using a Veress needle, after pneumoperitoneum was obtained a 8 mm camera port was placed. Under direct vision a 8mm robotic ports was placed lateral to each rectus slightly below the camera port. The left iliac fossa 8mm port was placed. The right assistant store leader right iliac fossa 12mm port and right paramedian 5mm portwere placed. After the patient was placed in the trendelenberg position, the robot was then docked to the 8mm robotic ports and then each robotic arm and tower was checked in relation to the patient's legs and hands to avoid inadvertent compression. The peritoneal cavity was inspected. Patient had extensive adhesions along the right lower quadrant that was taken down sharply, more than 45 minutes were spent lysing adhesions An inverted U-shaped incision began laterally to the left medial umbilical ligament and extended high across the midline to the right umbilical ligament. The limbs of the "U" extended to the level of the vasa on both sides. We next developed the preperitoneal space and the space of Retzius. of Cautery was used to dissected the bladder away from the prostate, the incision was made in close proximity to the prostate, and incision was extended laterally and at this point the plane between the adenoma and the surgical capsule is identified. . Both ureteral orifices were identified and neither was injured during the dissection . The adenoma was dissected off of the capsule by combination of blunt dissection and minimum cautery. dissection was initially started along the anterior surface and posterior surface of adenoma, and this was carried laterally. The dissection was carried to the apex, at this point the urethral-prostatic junction was visualized and the prostate was transected at the junction. Prostate adenoma was placed in an endocatch bag . A 6and 6 inch 3-0 V-Lock suture was used to anastomose the urethra and bladder, starting at the 6:00 posterior position. Mucosa was secured in every stitch, to ensure a mucosa to mucosa anastomosis. The stitch was regularly cinched and the anastomosis tightened. . The 20 Fr Dejesus catheter was advanced, the bladder filled, and the anastomosis was tested. Anastomsis was watertight at 150 mL. balloon was inflated to 10 mL The robot was undocked. specimen was extracted from the supraumbilical incision. The periumbilical fascia was closed with 1-0-PDS suture in figure of 8 fashion. All ports were closed with a subcuticular 4-0 monocryl and Dermabond. Sponge, instrument, and needle counts were correct at the end of the case x2. The patient tolerated the surgery well and without complication. He awoke without difficulty and was taken to the recovery room in stable condition
[2021-04-24 16:38] LABS: Glucose,Whole Blood 304 mg/dL (75-99)
[2021-04-24] MEDS ORDERED: INSULIN ASPART (NovoLOG) 100 UNIT/ML VIAL SQ ONE (16:42)
[2021-04-24] MEDS ORDERED: HYDROmorphone 0.5 MG/0.5 ML SYRINGE IVP ONE (16:59)
[2021-04-24] MEDS: SODIUM CHLORIDE 0.9% 1,000 ML IV SCH (17:23)
[2021-04-24] MEDS: HEPARIN SODIUM,PORCINE/PF 5,000 UNIT/0.5 ML SYRINGE SQ SCH ×2 (17:24→23:31)
[2021-04-24 17:51] LABS: Glucose,Whole Blood 246 mg/dL (75-99)
[2021-04-24] MEDS: KETOROLAC 15 MG/ML 1 ML VIAL IVP SCH ×2 (17:58→23:31)
[2021-04-24] MEDS: metFORMIN 500 MG TAB PO SCH (18:37)
[2021-04-24 20:28] LABS: Glucose,Whole Blood 147 mg/dL (75-99)
[2021-04-24] MEDS: INSULN ASP PRT/INSULIN ASPART 100 UNIT/ML 10 ML VIAL SQ SCH (20:30)
[2021-04-24] MEDS: VENLAFAXINE HCL 75 MG TAB PO SCH (20:44)
[2021-04-24] MEDS: CIPROFLOXACIN HCL 500 MG TAB PO SCH (20:44)
[2021-04-24] MEDS: lisinopriL 10 MG TAB PO SCH (20:44)
[2021-04-24] MEDS ORDERED: GABAPENTIN 400 MG CAP PO SCH (21:00)
[2021-04-24] MEDS ORDERED: AMITRIPTYLINE HCL 25 MG TAB PO SCH (21:00)
[2021-04-24] MEDS ORDERED: PRAVASTATIN SODIUM 40 MG TAB PO SCH (21:00)
[2021-04-25] MEDS: SODIUM CHLORIDE 0.9% 1,000 ML IV SCH ×2 (01:52→15:22)
[2021-04-25] MEDS: HYDROcodone/APAP 5-325MG 1 EACH TAB PO PRN ×3 (01:52→15:31)
[2021-04-25] MEDS: KETOROLAC 15 MG/ML 1 ML VIAL IVP SCH ×2 (05:34→11:52)
[2021-04-25 06:46] LABS: Glucose,Whole Blood 111 mg/dL (75-99)
[2021-04-25] MEDS: HEPARIN SODIUM,PORCINE/PF 5,000 UNIT/0.5 ML SYRINGE SQ SCH ×2 (07:16→15:22)
[2021-04-25] MEDS: VENLAFAXINE HCL 75 MG TAB PO SCH (07:16)
[2021-04-25] MEDS: CIPROFLOXACIN HCL 500 MG TAB PO SCH (07:16)
[2021-04-25] MEDS: lisinopriL 10 MG TAB PO SCH (07:20)
[2021-04-25] MEDS: INSULN ASP PRT/INSULIN ASPART 100 UNIT/ML 10 ML VIAL SQ SCH (07:52)
[2021-04-25] MEDS: metFORMIN 500 MG TAB PO SCH (07:54)
[2021-04-25] MEDS ORDERED: PIOGLITAZONE 15 MG TAB PO SCH (09:00)
[2021-04-25] MEDS ORDERED: atenoloL 50 MG TAB PO SCH (09:00)
[2021-04-25 09:02] LABS: Glucose,Whole Blood 215 mg/dL (75-99)
[2021-04-25 11:47] LABS: Glucose,Whole Blood 205 mg/dL (75-99)
--- NOTE | 2021-04-25 14:01 | P.DS ---
Providers Attending physician: Gianluca Cornejo MD Primary care physician: Yomaira [facility] Course: This is a 61-year-old male with history of BPH, he underwent robotic-assisted simple prostatectomy on April 24. Please see op note dated April 24 for surgery details. He was admitted to the hospital postoperatively. He was discharged home on postop day #1. At time of discharge was tolerating a diet, ambulating, pain was well-controlled. He was discharged home with the Smyth catheter Plan - Discharge Summary Discharge Rx Participant: Yes New Discharge Prescriptions: New Ketorolac [Toradol] 10 mg PO Q6HR PRN #15 tab PRN Reason: Pain No Action metFORMIN HCL [Glucophage] 1,000 mg PO BID Venlafaxine HCl [Effexor] 75 tab PO BID Amitriptyline HCl [Elavil] 25 mg PO HS Insulin NPH Hum/Reg Insulin Hm [Novolin 70-30 100 Unit/ml Vial] 15 unit SQ BID atenoloL 50 mg PO QAM Aspirin [Adult Low Dose Aspirin EC] 81 mg PO DAILY Dulaglutide [Trulicity] 1.5 mg SQ TH Pravastatin Sodium [Pravachol] 40 mg PO HS Pioglitazone [Actos] 15 mg PO DAILY Lisinopril [Prinivil] 10 mg PO BID Tamsulosin [Flomax] 0.4 mg PO BID Ergocalciferol [Vitamin D2 (1250 Mcg = 59775 Iu)] 1,250 mcg PO MO Gabapentin 800 mg PO HS Finasteride [Proscar] 5 mg PO QAM Discharge Medication List Amitriptyline HCl [Elavil] 25 mg PO HS 07/05/16 [History] Venlafaxine HCl [Effexor] 75 tab PO BID 07/05/16 [History] metFORMIN HCL [Glucophage] 1,000 mg PO BID 07/05/16 [History] Insulin NPH Hum/Reg Insulin Hm [Novolin 70-30 100 Unit/ml Vial] 15 unit SQ BID 09/18/16 [History] Aspirin [Adult Low Dose Aspirin EC] 81 mg PO DAILY 08/24/17 [History] atenoloL 50 mg PO QAM 08/24/17 [History] Dulaglutide [Trulicity] 1.5 mg SQ TH 11/24/19 [History] Pioglitazone [Actos] 15 mg PO DAILY 11/24/19 [History] Pravastatin Sodium [Pravachol] 40 mg PO HS 11/24/19 [History] Ergocalciferol [Vitamin D2 (1250 Mcg = 19480 Iu)] 1,250 mcg PO MO 04/21/21 [History] Finasteride [Proscar] 5 mg PO QAM 04/21/21 [History] Gabapentin 800 mg PO HS 04/21/21 [History] Lisinopril [Prinivil] 10 mg PO BID 04/21/21 [History] Tamsulosin [Flomax] 0.4 mg PO BID 04/21/21 [History] Ketorolac [Toradol] 10 mg PO Q6HR PRN #15 tab 04/25/21 [Rx] Follow up Appointment(s)/Referral(s): Yomaira Sparks MD [Primary Care Provider] - 05/01/21 2:30 pm Gianluca Cornejo MD [STAFF PHYSICIAN] - 05/05/21 8:20 am Activity/Diet/Wound Care/Special Instructions: increase fluid intake It's normal to see blood in the urine No heavy lifting or straining for 4 weeks You can discontinue her Flomax and Proscar Complete your antibiotics were initially prescribed for you Discharge Disposition: HOME SELF-CARE
[2021-04-25 15:35] VITALS: BP 103/63; PULSE 77; RESP 18; TEMP 97.9
== END 2021-04-25 15:58 | disposition home or self-care (01) ==
LOC: OR 09:35 → 4SSUR 17:06 → OR 04-25 15:58
PROVIDERS: ATTEND Urology
DX: N40.0 Benign prostatic hyperplasia without lower urinary tract symptoms (principal); Z79.82 Long term (current) use of aspirin; Z90.79 Acquired absence of other genital organ(s); Z20.822 Contact with and (suspected) exposure to COVID-19
CPT/HCPCS: 55866; S2900; 64999; 80048; 81001; 85025; 86850; 86900; 86901; 87077; 87086; 87186; 87635; 88307

== ENCOUNTER 2022-05-18 10:03 | Observation (INO) | payer OTHER ==
[2022-05-11 15:15] VITALS: BMI 32.3
[~2022-05-18 10:03] MED LIST changes: +ACETAMINOPHEN TAB 500 MG TAB PO PRN; -DEXAMETHASONE SOD PHOSPHATE 4 MG/ML 1 ML VIAL IV ONE; -MIDAZOLAM 2 MG/2 ML VIAL IV PRN; -ONDANSETRON 4 MG/2 ML VIAL IVP ONE; -SCOPOLAMINE 1.5MG/72HR PATCH TRANSDERM ONE
[2022-05-18] MEDS ORDERED: ONDANSETRON 4 MG/2 ML VIAL IVP ONE (10:24)
[2022-05-18] MEDS ORDERED: LIDOCAINE 1% (10MG/ML) FOR IV START INTRADERMA PRN (10:24)
[2022-05-18] MEDS ORDERED: HYDROmorphone 0.5 MG/0.5 ML SYRINGE IVP PRN ×2 (10:24→13:07)
[2022-05-18] MEDS ORDERED: DEXAMETHASONE SOD PHOSPHATE 4 MG/ML 1 ML VIAL IV ONE (10:24)
[2022-05-18] MEDS ORDERED: ONDANSETRON 4 MG/2 ML VIAL IVP PRN ×2 (10:24→13:07)
[2022-05-18 11:00] LABS: Glucose,Whole Blood 168 mg/dL (70-110)
[2022-05-18] MEDS: LACTATED RINGERS 1,000 ML IV SCH (11:01)
--- NOTE | 2022-05-18 11:15 | P.GSHP ---
History of Present Illness H&P Date: 05/18/22 Chief Complaint: Incisional hernia 61-year-old male here for elective hernia repair. Patient underwent prostatectomy and after that developed a bulge in the supraumbilical location. This is gradually enlarged. Mild pain. Patient years ago had a umbilical hernia repair with mesh. Past Medical History Past Medical History: Cancer, Diabetes Mellitus, GERD/Reflux, Hyperlipidemia, Hypertension, Pneumonia, Sleep Apnea/CPAP/BIPAP Additional Past Medical History / Comment(s): uses cpap. prostate cancer History of Any Multi-Drug Resistant Organisms: None Reported Past Surgical History: Appendectomy, Cholecystectomy, Hernia Repair, Orthopedic Surgery, Prostate Surgery Additional Past Surgical History / Comment(s): surgery rt elbow Past Anesthesia/Blood Transfusion Reactions: No Reported Reaction Additional Past Anesthesia/Blood Transfusion Reaction / Comment(s): . Past Psychological History: Anxiety, Depression Smoking Status: Never smoker Past Alcohol Use History: None Reported Past Drug Use History: None Reported - Past Family History Mother Family Medical History: Dementia Father Family Medical History: Cancer, CVA/TIA Additional Family Medical History / Comment(s): , Prostate Cancer Medications and Allergies Home Medications Medication Instructions Recorded Confirmed Type Amitriptyline HCl [Elavil] 25 mg PO HS 07/05/16 05/12/22 History metFORMIN HCL [Glucophage] 1,000 mg PO BID 07/05/16 05/18/22 History Insulin NPH Hum/Reg Insulin Hm 15 unit SQ BID 09/18/16 05/18/22 History [Novolin 70-30 100 Unit/ml Vial] Aspirin [Adult Low Dose Aspirin EC] 81 mg PO DAILY 08/24/17 05/12/22 History atenoloL 50 mg PO QAM 08/24/17 05/12/22 History Dulaglutide [Trulicity] 1.5 mg SQ TH 11/24/19 05/12/22 History Pioglitazone [Actos] 15 mg PO DAILY 11/24/19 05/18/22 History Pravastatin Sodium [Pravachol] 40 mg PO DAILY 11/24/19 05/18/22 History Ergocalciferol [Vitamin D2 (1250 1,250 mcg PO MO 04/21/21 05/12/22 History Mcg = 79499 Iu)] Finasteride [Proscar] 5 mg PO QAM 04/21/21 05/12/22 History Gabapentin 900 mg PO HS 04/21/21 05/12/22 History lisinopriL [Prinivil] 10 mg PO BID 04/21/21 05/12/22 History Ascorbic Acid [Vitamin C] 1,000 mg PO DAILY 05/12/22 05/18/22 History Multivitamins, Thera [Multivitamin 1 tab PO DAILY 05/12/22 05/12/22 History (formulary)] Omeprazole [PriLOSEC] 20 mg PO AC-BID 05/12/22 05/12/22 History Allergies Allergy/AdvReac Type Severity Reaction Status Date / Time No Known Allergies Allergy Verified 05/18/22 10:27 Surgical - Exam Vital Signs Temp Pulse Resp BP Pulse Ox 97.5 F L 71 16 153/91 100 05/18/22 10:34 05/18/22 10:34 05/18/22 10:34 05/18/22 10:34 05/18/22 10:34 Physical exam: General: Well-developed, well-nourished HEENT: Normocephalic, sclerae nonicteric Abdomen: Nontender, nondistended, reducible hernia supraumbilical midline incision, fascial defect approximately 3 x 4 cm Extremities: No edema Neuro: Alert and oriented Results - Labs Abnormal Lab Results - Last 24 Hours (Table) 05/18/22 Range/Units 10:56 POC Glucose (mg/dL) 168 H (70-110) mg/dL Assessment and Plan (1) Incisional hernia Narrative/Plan: 61-year-old male with incisional hernia. We'll proceed with open repair with mesh at this time. Risks of bleeding, infection, recurrence, bladder and bowel injury, numbness, nerve injury were discussed with the patient. The patient understands and wishes to proceed. Current Visit: Yes Status: Acute Code(s): K43.2 - INCISIONAL HERNIA WITHOUT OBSTRUCTION OR GANGRENE SNOMED Code(s): 337622173
[2022-05-18 11:23] LABS: ALT 34 U/L (4-49); AST 34 U/L (17-59); African American GFR (CKD) >90 (>60 ml/min/1.73 sqM); Albumin 4.8 g/dL (3.5-5.0); Alkaline Phosphatase 98 U/L (38-126); Anion Gap 9 mmol/L; Blood Urea Nitrogen 14 mg/dL (9-20); Calcium 9.1 mg/dL (8.4-10.2); Carbon Dioxide 30 mmol/L (22-30); Chloride 94 mmol/L (98-107); Glucose 169 mg/dL (74-99); Non-African American GFR(CKD) >90 (>60 ml/min/1.73 sqM); Potassium 4.9 mmol/L (3.5-5.1); Sodium 133 mmol/L (137-145); Total Bilirubin 0.9 mg/dL (0.2-1.3); Total Protein 7.6 g/dL (6.3-8.2)
[2022-05-18] MEDS ORDERED: ePHEDrine 50 MG/ML 1 ML VIAL ONE (11:23)
[2022-05-18] MEDS ORDERED: SUCCINYLCHOLINE CHLORIDE 200 MG/10 ML VIAL IV ONE (11:23)
[2022-05-18] MEDS ORDERED: NEOSTIGMINE 1 MG/ML 10 ML VIAL ONE (11:23)
[2022-05-18] MEDS ORDERED: PROPOFOL 10 MG/ML 20 ML VIAL IV ONE (11:23)
[2022-05-18] MEDS ORDERED: PHENYLEPHRINE-0.9% NACL SYG 1,000 MCG/10 ML SYRINGE ONE (11:23)
[2022-05-18] MEDS ORDERED: GLYCOPYRROLATE 0.2 MG/ML 2 ML VIAL ONE (11:23)
[2022-05-18] MEDS ORDERED: fentaNYL (PF) 50 MCG/ML 2 ML AMP ONE (11:23)
[2022-05-18] MEDS ORDERED: LIDOCAINE 2% INJ 20 MG/ML (2 ML VIAL) ONE (11:23)
[2022-05-18] MEDS ORDERED: MIDAZOLAM 2 MG/2 ML VIAL ONE (11:23)
[2022-05-18] MEDS ORDERED: KETOROLAC 15 MG/ML 1 ML VIAL ONE (11:23)
[2022-05-18] MEDS ORDERED: ROCURONIUM 10 MG/ML (5 ML VIAL) IV ONE (11:23)
[2022-05-18] MEDS ORDERED: LACTATED RINGERS 1,000 ML IV ONE (12:34)
[2022-05-18] MEDS ORDERED: HYDROmorphone 1 MG/ML 1 ML SYRINGE IVP PRN (13:07)
[2022-05-18] MEDS ORDERED: NALOXONE 0.4 MG/ML 1 ML VIAL IV PRN (13:07)
--- NOTE | 2022-05-18 13:16 | P.OP ---
Date of Procedure: 05/18/22 Procedure(s) Performed: PREOPERATIVE DIAGNOSIS: Incisional hernia POSTOPERATIVE DIAGNOSIS: Same PROCEDURE: Open repair incisional hernia with mesh SURGEON: Dr. Joseph ANESTHESIA: General OPERATIVE PROCEDURE DETAILS: Patient placed on the operating table in the supine position. Abdomen was prepped and draped in usual sterile fashion. The previous supraumbilical incision was excised sharply. Dissection through the subcutaneous tissues took place using electrocautery. A moderate sized hernia sac was identified. The hernia sac was carefully dissected down to the level of the fascia where it was partially excised. The defect measured 7 x 4 cm in diameter. No additional defects were seen. The fascia was freed of overlying adipose tissue circumferentially. The preperitoneal space was then carefully dissected circumferentially until we had enough space for a oval shaped Ventrio mesh measuring 12 x 8 cm. The peritoneum was closed using a running locking 2-0 Vicryl stitch and the mesh was placed just deep to the fascia. The previous umbilical hernia mesh was visualized and I was able to place the new mesh just deep to the superior aspect of the previous umbilical hernia mesh. The mesh was sutured in place using trans-fascial 0 Ethibond interrupted sutures. At that time we closed the fascia using horizontal mattress interrupted 0 Ethibond sutures. The folding edge was sutured down using interrupted 0 Ethibond sutures as well. The area was irrigated. No bleeding was seen. A drain was placed anterior to the fascial closure exiting through the right lower quadrant. This was sutured to the skin using a 3-0 silk stitch. The subcutaneous tissues were closed using 3-0 Vicryl sutures. The skin was closed using running 4-0 Monocryl suture and skin glue. Sterile dressings were applied. HERNIA CHARACTERISTICS: Length: 7 cm Width: 4 cm Type: Incisional TYPE OF MESH USED: Ventrio oval LOCATION OF MESH: Sub-lay FIXATION: Interrupted 0 Ethibond PREOPERATIVE DISCUSSION ON SMOKING CESSASTION: Yes PREOPERATIVE DISCUSSION ON MORBID OBESITY: Yes PREOPERATIVE DISCUSSION ON APPROPRIATE USE OF NARCOTIC USE: Yes PREOPERATIVE EDUCATION: Multi Modal, Smoking Cessation and Weight Loss with BMI over 35. DISPOSITION: Stable to recovery room
[2022-05-18 13:25] LABS: Glucose,Whole Blood 177 mg/dL (70-110)
[2022-05-18] MEDS ORDERED: HYDROmorphone 0.5 MG/0.5 ML SYRINGE IVP ONE (13:35)
[2022-05-18 16:47] LABS: Glucose,Whole Blood 202 mg/dL (70-110)
[2022-05-18] MEDS: KETOROLAC 15 MG/ML 1 ML VIAL IVP SCH (17:36)
[2022-05-18] MEDS: D5-0.45% NACL WITH KCL 20MEQ/L 1,000 ML IV SCH (17:37)
[2022-05-18] MEDS ORDERED: ERGOCALCIFEROL 1,250 MCG (50,000 IU) CAPSULE PO SCH (18:45)
[2022-05-18] MEDS: HYDROcodone/APAP 5-325MG 1 EACH TAB PO PRN (18:45)
[2022-05-18] MEDS: HEPARIN SODIUM,PORCINE/PF 5,000 UNIT/0.5 ML SYRINGE SQ SCH (18:46)
--- NOTE | 2022-05-18 19:02 | P.CONS ---
History of Present Illness - Reason for Consult Consult date: 05/18/22 - History of Present Illness Reginald Reyes, is a 61-year-old male who was admitted to [facility] by Dr. Joseph, and underwent repair of incisional hernia with mesh, he was admitted to medical floor post surgery consultation was requested for management while hospitalized. His primary care physician is Dr. Sparks. Past medical history significant for hypertension, hyperlipidemia, insulin- dependent diabetes mellitus, history of prostate cancer, history of benign prostatic hypertrophy, history of vitamin D deficiency, history of obstructive sleep apnea maintained on CPAP and previous history of umbilical hernia repair. On review of systems patient is alert and oriented 3 in no apparent distress he is complaining of pain at the surgical site otherwise he denies any complaints there is no fever or chills no headache or dizziness no chest pain no shortness of breath no cough no nausea or vomiting no diarrhea no blood in the stools no burning with urination no frequency or urgency and no hematuria Past Medical History Past Medical History: Cancer, Diabetes Mellitus, GERD/Reflux, Hyperlipidemia, Hypertension, Pneumonia, Sleep Apnea/CPAP/BIPAP Additional Past Medical History / Comment(s): uses cpap. prostate cancer History of Any Multi-Drug Resistant Organisms: None Reported Past Surgical History: Appendectomy, Cholecystectomy, Hernia Repair, Orthopedic Surgery, Prostate Surgery Additional Past Surgical History / Comment(s): surgery rt elbow Past Anesthesia/Blood Transfusion Reactions: No Reported Reaction Additional Past Anesthesia/Blood Transfusion Reaction / Comm: . Past Psychological History: Anxiety, Depression Smoking Status: Never smoker Past Alcohol Use History: None Reported Past Drug Use History: None Reported - Past Family History Mother Family Medical History: Dementia Father Family Medical History: Cancer, CVA/TIA Additional Family Medical History / Comment(s): , Prostate Cancer Medications and Allergies Home Medications Medication Instructions Recorded Confirmed Type Amitriptyline HCl [Elavil] 25 mg PO HS 07/05/16 05/12/22 History metFORMIN HCL [Glucophage] 1,000 mg PO BID 07/05/16 05/18/22 History Insulin NPH Hum/Reg Insulin Hm 15 unit SQ BID 09/18/16 05/18/22 History [Novolin 70-30 100 Unit/ml Vial] Aspirin [Adult Low Dose Aspirin EC] 81 mg PO DAILY 08/24/17 05/12/22 History atenoloL 50 mg PO QAM 08/24/17 05/12/22 History Dulaglutide [Trulicity] 1.5 mg SQ TH 11/24/19 05/12/22 History Pioglitazone [Actos] 15 mg PO DAILY 11/24/19 05/18/22 History Pravastatin Sodium [Pravachol] 40 mg PO DAILY 11/24/19 05/18/22 History Ergocalciferol [Vitamin D2 (1250 1,250 mcg PO MO 04/21/21 05/12/22 History Mcg = 28577 Iu)] Finasteride [Proscar] 5 mg PO QAM 04/21/21 05/12/22 History Gabapentin 900 mg PO HS 04/21/21 05/12/22 History lisinopriL [Prinivil] 10 mg PO BID 04/21/21 05/12/22 History Ascorbic Acid [Vitamin C] 1,000 mg PO DAILY 05/12/22 05/18/22 History Multivitamins, Thera [Multivitamin 1 tab PO DAILY 05/12/22 05/12/22 History (formulary)] Omeprazole [PriLOSEC] 20 mg PO AC-BID 05/12/22 05/12/22 History oxyCODONE HCL [OxyIR] 5 mg PO Q6H PRN 3 Days #6 tab 05/18/22 Rx Allergies Allergy/AdvReac Type Severity Reaction Status Date / Time No Known Allergies Allergy Verified 05/18/22 10:27 Physical Exam Vitals: Vital Signs Temp Pulse Resp BP Pulse Ox 05/18/22 15:36 85 112/67 97 05/18/22 15:21 78 117/71 98 05/18/22 15:06 66 107/68 100 05/18/22 14:51 63 108/62 97 05/18/22 14:36 97.9 F 60 113/67 98 05/18/22 14:01 59 L 16 108/60 99 05/18/22 14:00 98.0 F 68 16 109/67 99 05/18/22 13:50 98.0 F 68 16 107/68 99 05/18/22 13:45 60 16 106/66 99 05/18/22 13:30 59 L 16 106/69 99 05/18/22 13:20 61 16 114/69 97 05/18/22 13:05 97.1 F L 69 16 123/73 99 05/18/22 10:34 97.5 F L 71 16 153/91 100 Intake and Output 05/18/22 05/18/22 05/18/22 06:59 14:59 22:59 Intake Total 1500 Output Total 25 Balance 1475 Intake: IV 1500 Output: Estimated Blood Loss 25 Other: # Voids 1 Weight 93.8 kg In general patient is alert and oriented x 3 in no distress HEENT head normocephalic and atraumatic Neck is supple no JVD no goiter no lymphadenopathy no carotid bruit Chest examination is clear to auscultation no crackles no wheezing Cardiac exam reveals regular heart sounds S1 and S2 no gallops no murmurs Abdomen is soft nontender no organomegaly with normal bowel sounds Extremity exam reveals no edema no cyanosis or clubbing Neurological examination reveals no gross focal deficits Results CBC & Chem 7: 05/18/22 11:00 Labs: Abnormal Lab Results - Last 24 Hours (Table) 05/18/22 05/18/22 05/18/22 Range/Units 10:56 11:00 13:23 Sodium 133 L (137-145) mmol/L Chloride 94 L (98-107) mmol/L Glucose 169 H (74-99) mg/dL POC Glucose (mg/dL) 168 H 177 H (70-110) mg/dL 05/18/22 Range/Units 16:46 Sodium (137-145) mmol/L Chloride (98-107) mmol/L Glucose (74-99) mg/dL POC Glucose (mg/dL) 202 H (70-110) mg/dL Assessment and Plan Plan: 61-year-old male admitted for elective hernia repair Underlying history of insulin-dependent diabetes mellitus Underlying history of hypertension Underlying history of hyperlipidemia Underlying history of obstructive sleep apnea History of prostate cancer with history of prostate surgery At this time patient is stable Home medications reviewed and reordered Will check labs in a.m. Will follow closely during this admission
[2022-05-18 21:08] LABS: Glucose,Whole Blood 218 mg/dL (70-110)
[2022-05-18] MEDS: DOCUSATE 100 MG CAP PO SCH (21:46)
[2022-05-18] MEDS: GABAPENTIN 300 MG CAP PO SCH (21:46)
[2022-05-18] MEDS: lisinopriL 10 MG TAB PO SCH (21:46)
[2022-05-18] MEDS: metFORMIN 500 MG TAB PO SCH (21:47)
[2022-05-18] MEDS: AMITRIPTYLINE HCL 25 MG TAB PO SCH (21:47)
[2022-05-18] MEDS: ACETAMINOPHEN TAB 325 MG TAB PO PRN (21:47)
[2022-05-18] MEDS: INSULN ASP PRT/INSULIN ASPART 100 UNIT/ML 10 ML VIAL SQ SCH (22:20)
[2022-05-19] MEDS: KETOROLAC 15 MG/ML 1 ML VIAL IVP SCH ×4 (00:02→18:13)
[2022-05-19] MEDS: HYDROcodone/APAP 5-325MG 1 EACH TAB PO PRN ×2 (00:26→19:14)
[2022-05-19] MEDS: D5-0.45% NACL WITH KCL 20MEQ/L 1,000 ML IV SCH ×2 (05:03→22:13)
[2022-05-19] MEDS: HEPARIN SODIUM,PORCINE/PF 5,000 UNIT/0.5 ML SYRINGE SQ SCH ×3 (05:03→21:58)
[2022-05-19 06:24] LABS: Glucose,Whole Blood 123 mg/dL (70-110)
[2022-05-19] MEDS: metFORMIN 500 MG TAB PO SCH ×2 (07:11→18:13)
[2022-05-19] MEDS ORDERED: NON FORMULARY DRUG (Omeprazole 20 MG Capsule.Dr) PO SCH (07:30)
[2022-05-19] MEDS: DOCUSATE 100 MG CAP PO SCH ×2 (08:43→21:57)
[2022-05-19] MEDS: ASPIRIN 81 MG PO SCH (08:43)
[2022-05-19] MEDS: ASCORBIC ACID 500 MG TAB PO SCH (08:43)
[2022-05-19] MEDS: lisinopriL 10 MG TAB PO SCH ×2 (08:43→21:58)
[2022-05-19] MEDS: PRAVASTATIN SODIUM 40 MG TAB PO SCH (08:43)
[2022-05-19] MEDS: atenoloL 50 MG TAB PO SCH (08:43)
[2022-05-19] MEDS: FINASTERIDE 5 MG TAB PO SCH (08:44)
[2022-05-19] MEDS: PIOGLITAZONE 15 MG TAB PO SCH (08:44)
[2022-05-19] MEDS: MULTIVITAMINS, THERA 1 EACH TAB PO SCH (08:44)
[2022-05-19] MEDS ORDERED: PANTOPRAZOLE 40 MG/10 ML VIAL IV SCH (09:00)
[2022-05-19] MEDS: INSULN ASP PRT/INSULIN ASPART 100 UNIT/ML 10 ML VIAL SQ SCH ×2 (10:34→21:58)
[2022-05-19] MEDS: ACETAMINOPHEN TAB 325 MG TAB PO PRN ×2 (11:08→22:13)
[2022-05-19] MEDS ORDERED: TAMSULOSIN 0.4 MG CAP.ER.24H PO STA (11:27)
[2022-05-19 11:39] LABS: Glucose,Whole Blood 151 mg/dL (70-110)
--- NOTE | 2022-05-19 12:27 | P.PN ---
Subjective Progress Note Date: 05/19/22 CHIEF COMPLAINT: Incisional hernia HISTORY OF PRESENT ILLNESS: Patient is postop day #1 status post open repair incisional hernia with mesh. Patient complaining of urinary retention. He had to be straight cathed 2. Flomax added. Patient does report incisional pain but states that is controlled with pain medication. Denies any flatus or nausea or vomiting. DAHLIA drain with 45 mL sanguinous output. Afebrile. Sodium is 133 potassium 4.9 creatinine 0.78 glucose 151 PHYSICAL EXAM: VITAL SIGNS: Reviewed. GENERAL: Well-developed in no acute distress. HEENT: No sclera icterus. Extraocular movements grossly intact. Moist buccal mucosa. Head is atraumatic, normocephalic. ABDOMEN: Soft. mildly distended. Tender incision site. Incision clean dry and intact. DAHLIA drain with sanguinous output NEUROLOGIC: Alert and oriented. Cranial nerves II through XII grossly intact. ASSESSMENT: 1. Incisional hernia status post open repair of incisional hernia with mesh 2. Urinary retention 3. History of prostate cancer with prostate surgery PLAN: -Continue to monitor for urinary retention. If patient continues to retain urine for catheter will need to be placed. -Flomax added for urinary retention -Continue IV fluid -Continue regular diet -Encouraged patient to ambulate -Consult PT OT -DVT prophylaxis subcu heparin and GI prophylaxis Protonix Physician [place] Picker note has been reviewed by physician. Signing provider agrees with the documented findings, assessment, and plan of care. I have personally seen and examined the patient, reviewed the POLICE INSPECTOR /PAs history, exam and MDM and agree with the assessment and plan as written. Based on total visit time, I have performed more than 50% of the visit. As above: Patient was having some urinary retention. Also describes bloating. Suspect ileus at this time. Urination has improved. Continue diet. Ambulate. Possible discharge tomorrow. Objective - Vital Signs Vital signs: Vital Signs Temp 97.8 F 05/19/22 08:00 Pulse 75 05/19/22 08:00 Resp 18 05/19/22 08:40 BP 144/79 05/19/22 08:00 Pulse Ox 95 05/19/22 08:00 FiO2 Intake & Output 05/18/22 05/19/22 05/19/22 18:59 06:59 18:59 Intake Total 1500 450 Output Total 25 695 525 Balance 1475 -245 -525 Weight 93.8 kg Intake: IV 1500 Oral 450 Output: Drainage 45 Right Lower Anterior 45 Abdomen Urine 625 525 Straight 600 525 Post Void Residual 25 Estimated Blood Loss 25 Other: Voiding Method Self-Catheterization Self-Catheterization # Voids 1 - Labs CBC & Chem 7: 05/18/22 11:00 Labs: Abnormal Lab Results - Last 24 Hours (Table) 05/18/22 05/18/22 05/18/22 Range/Units 13:23 16:46 21:06 POC Glucose (mg/dL) 177 H 202 H 218 H (70-110) mg/dL 05/19/22 05/19/22 Range/Units 06:22 11:38 POC Glucose (mg/dL) 123 H 151 H (70-110) mg/dL
[2022-05-19] MEDS: LACTATED RINGERS 1,000 ML IV SCH (14:32)
[2022-05-19 16:52] LABS: Glucose,Whole Blood 174 mg/dL (70-110)
--- NOTE | 2022-05-19 16:52 | P.PN ---
Subjective Progress Note Date: 05/19/22 Reginald Reyes, is a 61-year-old male who was admitted to [facility] by Dr. Joseph, and underwent repair of incisional hernia with mesh, he was admitted to medical floor post surgery consultation was requested for management while hospitalized. His primary care physician is Dr. Sparks. Past medical history significant for hypertension, hyperlipidemia, insulin- dependent diabetes mellitus, history of prostate cancer, history of benign prostatic hypertrophy, history of vitamin D deficiency, history of obstructive sleep apnea maintained on CPAP and previous history of umbilical hernia repair. On review of systems patient is alert and oriented 3 in no apparent distress he is complaining of pain at the surgical site otherwise he denies any complaints there is no fever or chills no headache or dizziness no chest pain no shortness of breath no cough no nausea or vomiting no diarrhea no blood in the stools no burning with urination no frequency or urgency and no hematuria On 05/19/2022 patient was seen and examined on the medical floor he is alert and oriented 3 in no apparent distress he is still complaining of abdominal discomfort he is also complaining of urinary retention he had straight cath twice today he was started on oral Flomax, otherwise he denies any complaints there is no fever or chills no headache or dizziness no chest pain no shortness of breath no cough. Objective - Vital Signs Vital signs: Vital Signs Temp 97.8 F 05/19/22 14:00 Pulse 78 05/19/22 14:00 Resp 16 05/19/22 14:00 BP 126/72 05/19/22 14:00 Pulse Ox 94 L 05/19/22 14:00 FiO2 Intake & Output 05/18/22 05/19/22 05/19/22 18:59 06:59 18:59 Intake Total 1500 450 Output Total 25 695 525 Balance 4730 -032 -075 Weight 93.8 kg Intake: IV 1500 Oral 450 Output: Drainage 45 Right Lower Anterior 45 Abdomen Urine 625 525 Straight 600 525 Post Void Residual 25 Estimated Blood Loss 25 Other: Voiding Method Self-Catheterization Self-Catheterization # Voids 1 - Exam In general patient is alert and oriented x 3 in no distress HEENT head normocephalic and atraumatic Neck is supple no JVD no goiter no lymphadenopathy no carotid bruit Chest examination is clear to auscultation no crackles no wheezing Cardiac exam reveals regular heart sounds S1 and S2 no gallops no murmurs Abdomen is soft nontender no organomegaly with normal bowel sounds Extremity exam reveals no edema no cyanosis or clubbing Neurological examination reveals no gross focal deficits - Labs CBC & Chem 7: 05/18/22 11:00 Labs: Abnormal Lab Results - Last 24 Hours (Table) 05/18/22 05/18/22 05/19/22 Range/Units 16:46 21:06 06:22 POC Glucose (mg/dL) 202 H 218 H 123 H (70-110) mg/dL 05/19/22 Range/Units 11:38 POC Glucose (mg/dL) 151 H (70-110) mg/dL Assessment and Plan Plan: 61-year-old male admitted for elective hernia repair Underlying history of insulin-dependent diabetes mellitus Underlying history of hypertension Underlying history of hyperlipidemia Underlying history of obstructive sleep apnea History of prostate cancer with history of prostate surgery At this time patient is stable Home medications reviewed and reordered Will check labs in a.m. Will follow closely during this admission
[2022-05-19] MEDS ORDERED: TAMSULOSIN 0.4 MG CAP.ER.24H PO SCH (18:30)
[2022-05-19] MEDS: GABAPENTIN 300 MG CAP PO SCH (21:58)
[2022-05-19] MEDS: AMITRIPTYLINE HCL 25 MG TAB PO SCH (21:58)
[2022-05-20] MEDS: KETOROLAC 15 MG/ML 1 ML VIAL IVP SCH ×3 (00:47→13:04)
[2022-05-20] MEDS: HYDROcodone/APAP 5-325MG 1 EACH TAB PO PRN ×2 (00:58→13:33)
[2022-05-20 06:00] LABS: Glucose,Whole Blood 149 mg/dL (70-110)
[2022-05-20] MEDS: HEPARIN SODIUM,PORCINE/PF 5,000 UNIT/0.5 ML SYRINGE SQ SCH ×2 (06:12→13:04)
[2022-05-20] MEDS: metFORMIN 500 MG TAB PO SCH (06:12)
[2022-05-20] MEDS ORDERED: PANTOPRAZOLE 40 MG TABLET PO SCH (07:30)
[2022-05-20 07:39] LABS: Glucose,Whole Blood 140 mg/dL (70-110)
[2022-05-20] MEDS: INSULN ASP PRT/INSULIN ASPART 100 UNIT/ML 10 ML VIAL SQ SCH (07:56)
[2022-05-20] MEDS: atenoloL 50 MG TAB PO SCH (07:57)
[2022-05-20] MEDS: lisinopriL 10 MG TAB PO SCH (07:57)
[2022-05-20] MEDS: PRAVASTATIN SODIUM 40 MG TAB PO SCH (07:57)
[2022-05-20] MEDS: ASCORBIC ACID 500 MG TAB PO SCH (07:57)
[2022-05-20] MEDS: DOCUSATE 100 MG CAP PO SCH (07:57)
[2022-05-20] MEDS: FINASTERIDE 5 MG TAB PO SCH (07:57)
[2022-05-20] MEDS: ASPIRIN 81 MG PO SCH (07:57)
[2022-05-20] MEDS: MULTIVITAMINS, THERA 1 EACH TAB PO SCH (07:57)
[2022-05-20 07:59] VITALS: BP 127/68; PULSE 81; TEMP 97.8
[2022-05-20] MEDS: D5-0.45% NACL WITH KCL 20MEQ/L 1,000 ML IV SCH (07:59)
[2022-05-20] MEDS: PIOGLITAZONE 15 MG TAB PO SCH (08:04)
--- NOTE | 2022-05-20 09:41 | P.PN ---
Subjective Progress Note Date: 05/20/22 Reginald Reyes, is a 61-year-old male who was admitted to [facility] by Dr. Joseph, and underwent repair of incisional hernia with mesh, he was admitted to medical floor post surgery consultation was requested for management while hospitalized. His primary care physician is Dr. Sparks. Past medical history significant for hypertension, hyperlipidemia, insulin- dependent diabetes mellitus, history of prostate cancer, history of benign prostatic hypertrophy, history of vitamin D deficiency, history of obstructive sleep apnea maintained on CPAP and previous history of umbilical hernia repair. On review of systems patient is alert and oriented 3 in no apparent distress he is complaining of pain at the surgical site otherwise he denies any complaints there is no fever or chills no headache or dizziness no chest pain no shortness of breath no cough no nausea or vomiting no diarrhea no blood in the stools no burning with urination no frequency or urgency and no hematuria On 05/19/2022 patient was seen and examined on the medical floor he is alert and oriented 3 in no apparent distress he is still complaining of abdominal discomfort he is also complaining of urinary retention he had straight cath twice today he was started on oral Flomax, otherwise he denies any complaints there is no fever or chills no headache or dizziness no chest pain no shortness of breath no cough. On 05/20/2022 patient's alert and oriented 3. Patient reports improvement with abdominal discomfort. Patient has been up ambulating. Patient reports he has been tolerating diet. Patient has been passing gas. Patient reports he has been now urinating without issue. Anticipate possible discharge home today per surgical services. Lab work currently pending. Patient denies chest pain. Patient denies nausea vomiting or diarrhea. Patient denies any urinary burning or frequency Objective - Vital Signs Vital signs: Vital Signs Temp 97.8 F 05/20/22 07:59 Pulse 81 05/20/22 07:59 Resp 12 05/20/22 07:59 BP 127/68 05/20/22 07:59 Pulse Ox 91 L 05/20/22 07:59 FiO2 Intake & Output 05/19/22 05/20/22 05/20/22 18:59 06:59 18:59 Output Total 995 1600 315 Balance -995 -1600 -315 Output: Drainage 20 0 Right Lower Anterior 20 0 Abdomen Urine 975 1600 315 Straight 525 Other: Voiding Method Self-Catheterization Urinal # Voids 1 - Exam In general patient is alert and oriented x 3 in no distress HEENT head normocephalic and atraumatic Neck is supple no JVD no goiter no lymphadenopathy no carotid bruit Chest examination is clear to auscultation no crackles no wheezing Cardiac exam reveals regular heart sounds S1 and S2 no gallops no murmurs Abdomen is soft nontender no organomegaly with normal bowel sounds Extremity exam reveals no edema no cyanosis or clubbing Neurological examination reveals no gross focal deficits - Labs CBC & Chem 7: 05/18/22 11:00 Labs: Abnormal Lab Results - Last 24 Hours (Table) 05/19/22 05/19/22 05/20/22 Range/Units 11:38 16:50 05:59 POC Glucose (mg/dL) 151 H 174 H 149 H (70-110) mg/dL 05/20/22 Range/Units 07:37 POC Glucose (mg/dL) 140 H (70-110) mg/dL Assessment and Plan Plan: 61-year-old male admitted for elective hernia repair Underlying history of insulin-dependent diabetes mellitus Underlying history of hypertension Underlying history of hyperlipidemia Underlying history of obstructive sleep apnea History of prostate cancer with history of prostate surgery At this time patient is stable Home medications reviewed and reordered Will check labs in a.m. Will follow closely during this admission Hospital discharge today 05/20/2023 2 per surgical services
[2022-05-20 10:30] LABS: Basophils # (A) 0.04 X 10*3/uL (0.00-0.10); Basophils % (A) 0.6 %; Eosinophils # (A) 0.42 X 10*3/uL (0.04-0.35); Eosinophils % (A) 6.3 %; HCT 37.9 % (39.6-50.0); HGB 12.3 g/dL (13.0-17.0); Immature Grans, Automated 0.3 %; Lymphocytes # (A) 1.26 X 10*3/uL (0.90-5.00); Lymphocytes % (A) 18.9 %; MCH 26.8 pg (27.0-32.0); MCHC 32.5 g/dL (32.0-37.0); MCV 82.6 fL (80.0-97.0); Monocytes # (A) 0.58 X 10*3/uL (0.20-1.00); Monocytes % (A) 8.7 %; NRBC Per 100 WBC 0 /100 WBCS (0.0-0.0); Neutrophils # (A) 4.36 X 10*3/uL (1.80-7.70); Neutrophils % (A) 65.2 %; Platelet Count 233 X 10*3/uL (140-440); RBC 4.59 X 10*6/uL (4.40-5.60); RDW 15.3 % (11.5-14.5); WBC 6.68 X 10*3/uL (4.50-10.00)
[2022-05-20 10:44] LABS: African American GFR (CKD) 110.2 (60.0-200.0); Albumin 3.9 g/dL (3.8-4.9); Albumin/Globulin Ratio 1.95 (1.60-3.17); Anion Gap 8.5 mmol/L (10.00-18.00); BUN/Creat Ratio 13.38 Ratio (12.00-20.00); Blood Urea Nitrogen 10.7 mg/dL (9.0-27.0); Calcium 8.3 mg/dL (8.7-10.3); Carbon Dioxide 24.5 mmol/L (20.0-27.5); Non-African American GFR(CKD) 95.1 (60.0-200.0); Potassium 4.9 mmol/L (3.5-5.5); Total Bilirubin 0.8 mg/dL (0.30-1.20); Total Protein 5.9 g/dL (6.2-8.2)
[2022-05-20 10:50] LABS: Glucose,Whole Blood 167 mg/dL (70-110)
[2022-05-20 11:40] VITALS: RESP 15
--- NOTE | 2022-05-20 12:23 | P.DS ---
Providers Date of admission: 05/19/22 00:38 Expected date of discharge: 05/20/22 Attending physician: Bryant Joseph Consults: 05/18/22 13:10 Consult Physician Routine Consulting Provider: Venkat Trujillo Consult Reason/Comments: Medical management Do you want consulting provider notified?: Yes Primary care physician: Yomaira Sparks Hospital Course: Discharge diagnosis 1. Incisional hernia status post open repair of incisional hernia with mesh 2. Urinary retention resolved 3. Hyponatremia appears to be chronic. Recommend follow up with PCP in 2 days with repeat sodium level Hospital course This is a 61-year-old male with incisional hernia. He is status post open repair of incisional hernia with mesh. He tolerated surgery well. His pain is controlled. He did have evidence of urinary retention this has now resolved. He has been up and ambulating. He is afebrile. He is tolerating diet. He is stable for discharge. Please refer to chart for any further details. Physician Video Surveillance Technician note has been reviewed by physician. Signing provider agrees with the documented findings, assessment, and plan of care. Patient Condition at Discharge: Stable Plan - Discharge Summary Discharge Rx Participant: No New Discharge Prescriptions: New oxyCODONE HCL [OxyIR] 5 mg PO Q6H PRN 3 Days #6 tab PRN Reason: Breakthrough Pain Docusate [Colace] 100 mg PO BID #30 capsule Continue metFORMIN HCL [Glucophage] 1,000 mg PO BID Amitriptyline HCl [Elavil] 25 mg PO HS Insulin NPH Hum/Reg Insulin Hm [NovoLIN 70-30 100 UNIT/ML VIAL] 15 unit SQ BID atenoloL 50 mg PO QAM Aspirin [Adult Low Dose Aspirin EC] 81 mg PO DAILY Dulaglutide [Trulicity] 1.5 mg SQ TH Pravastatin Sodium [Pravachol] 40 mg PO DAILY Pioglitazone [Actos] 15 mg PO DAILY lisinopriL [Prinivil] 10 mg PO BID Omeprazole [PriLOSEC] 20 mg PO AC-BID Multivitamins, Thera [Multivitamin (formulary)] 1 tab PO DAILY Ascorbic Acid [Vitamin C] 1,000 mg PO DAILY Ergocalciferol [Vitamin D2 (1250 Mcg = 95526 Iu)] 1,250 mcg PO MO Gabapentin 900 mg PO HS Finasteride [Proscar] 5 mg PO QAM Discharge Medication List Amitriptyline HCl [Elavil] 25 mg PO HS 07/05/16 [History] metFORMIN HCL [Glucophage] 1,000 mg PO BID 07/05/16 [History] Insulin NPH Hum/Reg Insulin Hm [NovoLIN 70-30 100 UNIT/ML VIAL] 15 unit SQ BID 09/18/16 [History] Aspirin [Adult Low Dose Aspirin EC] 81 mg PO DAILY 08/24/17 [History] atenoloL 50 mg PO QAM 08/24/17 [History] Dulaglutide [Trulicity] 1.5 mg SQ TH 11/24/19 [History] Pioglitazone [Actos] 15 mg PO DAILY 11/24/19 [History] Pravastatin Sodium [Pravachol] 40 mg PO DAILY 11/24/19 [History] Ergocalciferol [Vitamin D2 (1250 Mcg = 98577 Iu)] 1,250 mcg PO MO 04/21/21 [History] Finasteride [Proscar] 5 mg PO QAM 04/21/21 [History] Gabapentin 900 mg PO HS 04/21/21 [History] lisinopriL [Prinivil] 10 mg PO BID 04/21/21 [History] Ascorbic Acid [Vitamin C] 1,000 mg PO DAILY 05/12/22 [History] Multivitamins, Thera [Multivitamin (formulary)] 1 tab PO DAILY 05/12/22 [History] Omeprazole [PriLOSEC] 20 mg PO AC-BID 05/12/22 [History] oxyCODONE HCL [OxyIR] 5 mg PO Q6H PRN 3 Days #6 tab 05/18/22 [Rx] Docusate [Colace] 100 mg PO BID #30 capsule 05/20/22 [Rx] Follow up Appointment(s)/Referral(s): Bryant Joseph MD [Medical Doctor] - 1 Week Yomaira Sparks MD [Primary Care Provider] - 1-2 Days Activity/Diet/Wound Care/Special Instructions: No driving while taking [place] No lifting over 10 pounds You may shower. No soaking or tub baths for 2 weeks Very light activity until you are reevaluated at your follow up appointment with your surgeon Keep a log of DAHLIA drain output and bring with you to your follow-up appointment Milk/strip drains 2-3 times a day check BMP in 2 days with PCP Discharge Disposition: HOME SELF-CARE
[2022-05-21] MEDS ORDERED: NON FORMULARY DRUG (Dulaglutide [Trulicity] 1.5 MG/0.5 ML Pen.Injctr) SQ SCH (09:00)
== END 2022-05-20 13:46 | disposition home or self-care (01) ==
LOC: OR 10:03 → 4SSUR 13:10 → OR 05-19 00:38 → 4SSUR 05-19 00:38
PROVIDERS: ADMIT Surgery; ATTEND Surgery
DX: K43.2 Incisional hernia without obstruction or gangrene (principal); E11.9 Type 2 diabetes mellitus without complications; K21.9 Gastro-esophageal reflux disease without esophagitis; E78.5 Hyperlipidemia, unspecified; I10 Essential (primary) hypertension; N40.1 Benign prostatic hyperplasia with lower urinary tract symptoms; R33.8 Other retention of urine; E87.1 Hypo-osmolality and hyponatremia; F32.A Depression, unspecified; F41.9 Anxiety disorder, unspecified; E55.9 Vitamin D deficiency, unspecified; G47.33 Obstructive sleep apnea (adult) (pediatric); Z85.46 Personal history of malignant neoplasm of prostate; Z90.49 Acquired absence of other specified parts of digestive tract; Z80.42 Family history of malignant neoplasm of prostate; Z79.84 Long term (current) use of oral hypoglycemic drugs; Z79.4 Long term (current) use of insulin; Z79.82 Long term (current) use of aspirin; Z79.899 Other long term (current) drug therapy; Z82.3 Family history of stroke
CPT/HCPCS: 96376 ×2; 96365; 96366 ×2; 96372 ×2; 96375; 97161; 97166; 80053 ×2; 85025; 88302; 49560; 49568; G0378 ×2; C1781; S0138 ×2; J2250; J0330; J1100; J2710; J0690; J2405; J3010; J1885 ×3; J2370; J2704; C9113; J1170; J1644 ×3; J2001